=== PATIENT | female | born 1950 | race Caucasian/White ===

== ENCOUNTER 2018-01-08 20:47 | Emergency (ER) | payer MEDICARE, MEDICAID ==
[~2018-01-08] VITALS: Ht 160 cm; Wt 47.6 kg
[2018-01-08 21:14] VITALS: BP 156/99
[2018-01-08] MEDS ORDERED: TRIAMCINOLONE 40MG/ML 1ML VIAL IM ONE (22:00)
[2018-01-08] MEDS ORDERED: HYDROcodone-ACET 5/325MG TAB PO ONE (22:00)
== END 2018-01-08 23:13 | disposition home or self-care (01) ==
LOC: ER 20:47
DX: S30.0XXA Contusion of lower back and pelvis, initial encounter (principal); M62.830 Muscle spasm of back; M19.90 Unspecified osteoarthritis, unspecified site; X50.0XXA Overexertion from strenuous movement or load, initial encounter; Y93.89 Activity, other specified; Y92.89 Other specified places as the place of occurrence of the external cause; Y99.8 Other external cause status
CPT/HCPCS: 72220; 73110; 96372; 99283; J3301

== ENCOUNTER 2019-12-21 16:17 | Inpatient (IN) | payer MEDICARE, MEDICAID ==
[~2019-12-21] VITALS: Ht 162.6 cm; Wt 44.7 kg
[~2019-12-21 16:17] MED LIST: HYDR25TA4 PO; PERCOT PO
[2019-12-21] MEDS ORDERED: SODIUM CHLORIDE 0.9% 500 ML IVB ONE (16:45)
[2019-12-21 17:49] LABS: Basophils # (auto) 0.1 10 ^3/uL (0-0.2); Basophils % (auto) 1.2 % (0.0-2.0); Eosinophils # (auto) 0 10 ^3/uL (0-0.8); Eosinophils % (auto) 0.1 % (0.0-7.0); Hematocrit 40.5 % (36.0-46.0); Hemoglobin 13.7 g/dL (12.2-16.2); Lymphocytes # (auto) 1.1 10 ^3/uL (0.4-5.4); Lymphocytes % (auto) 12.8 % (10.0-50.0); Mean Corpuscular Hemoglobin 32.2 pg (28.0-32.0); Mean Corpuscular Volume 94.9 fL (80.0-100.0); Monocytes # (auto) 0.5 10 ^3/uL (0-1.3); Monocytes % (auto) 5.6 % (0.0-12.0); Neutrophils # (auto) 6.9 10 ^3/uL (1.6-8.6); Neutrophils % (auto) 80.3 % (37.0-80.0); Platelet Count (auto) 245 10^3/uL (140-450); Red Blood Cells 4.27 10^6/uL (4.0-5.20); Red Cell Distribution Width 14.2 % (11.8-14.3); White Blood Cell 8.6 10^3/uL (4.4-10.8)
[2019-12-21 18:12] LABS: Albumin 3.6 g/dL (3.4-5.0); Calcium 9.3 mg/dL (8.5-10.1); Magnesium 2.5 mg/dL (1.6-2.6); Potassium 3.5 mmol/L (3.5-5.1)
[2019-12-21 18:15] LABS: BUN/Creatinine Ratio 22.7; Total Protein 6.9 g/dL (6.4-8.2)
[2019-12-21 18:41] LABS: Urine Bacteria NONE SEEN /hpf (None Seen); Urine Blood Negative /uL (Negative); Urine Specific Gravity 1.012 (1.001-1.035); Urine WBC 3 /hpf (0 - 5)
[2019-12-21] MEDS ORDERED: MORPHINE SULF INJ 2 MG/ML SYRINGE 1ML IV ONE (18:45)
[2019-12-21] MEDS ORDERED: ONDANSETRON HCL 4 MG/2 ML VIAL IV ONE ×2 (18:45→20:00)
[2019-12-21] MEDS ORDERED: NITROGLYCERIN 0.4 MG SL TAB SL PRN ×2 (19:30→19:45)
[2019-12-21] MEDS ORDERED: MORPHINE SULF INJ 2 MG/ML SYRINGE 1ML IV PRN (19:45)
[2019-12-21] MEDS ORDERED: ACETAMINOPHEN 325 MG TAB PO PRN (19:45)
[2019-12-21] MEDS ORDERED: DOCUSATE SOD 100 MG CAP PO PRN (19:45)
[2019-12-21] MEDS ORDERED: methylPREDNISolone SOD SUCC 125 MG/2 ML VL IV ONE (19:45)
[2019-12-21] MEDS ORDERED: SODIUM CHLORIDE 0.9% 1,000 ML IV ONE (19:45)
[2019-12-21] MEDS ORDERED: NIFEdipine ER 30 MG TAB PO ONE (19:45)
[2019-12-21] MEDS ORDERED: MEROPENEM 1GM IVPB 100 ML IV ONE (19:45)
[2019-12-21] MEDS ORDERED: PANTOPRAZOLE 40 MG/10 ML VIAL INJ IV ONE (19:45)
[2019-12-21] MEDS ORDERED: ALUM & MAG HYDROX-SIMETH LIQ(MAALOX) 30 ML PO PRN (19:45)
[2019-12-21] MEDS ORDERED: IPRATROPIUM BROM 0.5 MG/2.5ML INH SOL NEB ONE (20:00)
[2019-12-21] MEDS ORDERED: HYDROmorphone HCL 2 MG/ML VL IV ONE (20:00)
[2019-12-21] MEDS: ATORVASTATIN 20 MG TAB PO SCH (20:37)
[2019-12-21] MEDS: IPRATROPIUM BROM 0.5 MG/2.5ML INH SOL NEB SCH (21:06)
[2019-12-21 21:18] LABS: Cholesterol 109 mg/dL (< 200); HDL Cholesterol 67 mg/dL (40-59); LDL Cholesterol 32 mg/dL (< 100); Triglycerides 100 mg/dL (< 150)
[2019-12-21] MEDS ORDERED: ALBUTEROL SULF 2.5 MG/0.5ML(0.5%) NEB SOLN NEB PRN (21:30)
--- NOTE | 2019-12-21 21:50 | NUR ---
ADMITTED PATIENT FROM THE ER, AAOX4. NO DISTRESS NOTED. AFEBRILE. NO SOB NOTED. MILD BLE WEAKNESS NOTED. ORIENTATION GIVEN. ROUTINE ADMISSION DONE. POCS DISCUSSED WITH PATIENT AND SHOWED UNDERSTANDING. BED KEPT ON LOWEST POSITION. SIDE RAILS UP. CALL LIGHT/TABLE IN REACH. KEPT COMFORTABLE.
[2019-12-21 22:00] VITALS: BP 148/81
[2019-12-21] MEDS ORDERED: IPRATROPIUM BROM 0.5 MG/2.5ML INH SOL NEB PRN (22:00)
[2019-12-21] MEDS ORDERED: PRED-158 PO (22:09)
[2019-12-21] MEDS ORDERED: ASPI-543 PO (22:09)
[2019-12-21 22:19] VITALS: BP 132/65
[2019-12-21] MEDS: HYDROcodone-ACET 5/325MG TAB PO PRN (22:58)
[2019-12-21] MEDS: LORazepam 0.5 MG TAB PO PRN ×2 (22:58→22:59)
[2019-12-21 23:40] VITALS: BP 132/65
[2019-12-22] MEDS: MORPHINE SULF INJ 2 MG/ML SYRINGE 1ML IV PRN ×3 (03:06→21:47)
[2019-12-22 05:00] VITALS: BP 110/70
[2019-12-22] MEDS ORDERED: methylPREDNISolone SOD SUCC 40 MG/ML VL IV SCH (06:00)
--- NOTE | 2019-12-22 07:35 | NUR ---
Opening note Assumed care of patient from NOC RN. Patient is Aox4 on room air, patient noted to be dry heaving and vomiting yellow emesis. Bed is in lowest locked position, call light within reach and side rails up x2. Updated patient on plan of care and patient verbalized understanding. Will continue to monitor. Will notify MD of N/V
[2019-12-22 09:00] VITALS: BP 139/77
[2019-12-22] MEDS: ONDANSETRON HCL 4 MG/2 ML VIAL IV PRN ×2 (09:12→15:09)
[2019-12-22] MEDS: PANTOPRAZOLE 40 MG/10 ML VIAL INJ IV SCH (09:13)
[2019-12-22] MEDS: ENOXAPARIN SOD 40 MG/0.4 ML SYRINGE SC SCH (09:14)
[2019-12-22] MEDS: HYDROcodone-ACET 5/325MG TAB PO PRN ×2 (09:15→15:09)
[2019-12-22] MEDS: ASPirin 81 mg TAB PO SCH (09:15)
--- NOTE | 2019-12-22 09:30 | NUR ---
patient vomited multiple times, emesis noted to be yellow in color. Will provide patient with PRN nausea medication.
[2019-12-22] MEDS ORDERED: MEROPENEM 1GM IVPB 100 ML IV SCH (10:00)
--- NOTE | 2019-12-22 10:30 | NUR ---
physician rounding Dr. Epperson at bedside. MD updated patient on plan of care. One time order for pain medication, and q6 order for Phenergan. Will follow through.
[2019-12-22] MEDS ORDERED: HYDROmorphone HCL 2 MG/ML VL IV ONE (10:45)
[2019-12-22] MEDS: PROMETHAZINE HCL 25 MG/ML 1ML IV PRN ×2 (11:26→18:00)
[2019-12-22 13:00] VITALS: BP 149/79
--- NOTE | 2019-12-22 13:50 | NUR ---
Spoke with deburring technician Per Tech patient was taken to CT and patient was stating "I do not want to do the CT." Per tech patient was asked if she wanted to complete the test and that she has the right to refuse, the patient stated "Never mind. I do want to do it." Per tech, when IV line was flushed with saline patient screamed "It hurts stop, I do not want to do it!" Patient was brought to bedside. Iv line was assessed and patient stated no pain. Asked patient if she would continue with the CT scan and patient stated refusal.
[2019-12-22] MEDS ORDERED: IOHEXOL 300 MG/ML 100ML BOTTLE IJ ONE (13:54)
--- NOTE | 2019-12-22 14:18 | NUR ---
Patient refusal Informed patient that NG tube must be placed. Explained to patient the procedure and patient stated " I do not want it, i just want pain medication and for my vomiting to stop." Educated patient that NG tube can help reduce nausea and vomiting. Patient still verbalizing refusal. Patient actively vomiting, provided patient with nausea and pain medication. Will notify MD.
--- NOTE | 2019-12-22 14:20 | NUR ---
MD aware of refusal MD aware of patient refusing NG tube placement and CT scan. Addendum: 12/22/19 at 1701 by AURORA FRIEDMAN RN informed MD patient is requesting pain medication for higher level pain. Informed MD patient is visibly uncomfortable. Per MD no new orders for pain medication are needed at this time. Per MD keep patient on current PRN medications.
--- NOTE | 2019-12-22 14:50 | NUR ---
received call from Radiology dialysis equipment technician requesting information if patient is ready and consenting to CT scan. Informed them that patient is still verbalizing refusal for scan. CT will be D/C'd due to refusal. Informed tech that MD is aware of refusal.
[2019-12-22 17:00] VITALS: BP 141/65
[2019-12-22] MEDS: SODIUM CHLORIDE 0.9% 1,000 ML IV SCH (18:07)
[2019-12-22 18:44] LABS: Urine Bacteria NONE SEEN /hpf (None Seen); Urine Blood TRACE /uL (Negative); Urine Mucus FEW (None Seen); Urine Specific Gravity 1.016 (1.001-1.035); Urine WBC 1 /hpf (0 - 5)
[2019-12-22 19:01] LABS: Alcohol, Urine < 3.0 mg/dL (0-10); Amphetamine Screen, Urine NEGATIVE (NEGATIVE); Barbiturate Scree,Urine NEGATIVE (NEGATIVE); Benzodiazephine Screen, Urine NEGATIVE (NEGATIVE); Cannabinoid Screen, Urine NEGATIVE (NEGATIVE); Cocaine Screen, Urine NEGATIVE (NEGATIVE); Opiate Scree,Urine POSITIVE (NEGATIVE); Phencyclidine Screen, Urine NEGATIVE (NEGATIVE)
--- NOTE | 2019-12-22 19:20 | NUR ---
Opening Shift Note Received report from david Tan RN. Assumed care of patient, awake and alert. No S/S of distress/SOB, but c/o pain to lower back pain. Will give pain medication as ordered. Instructed on POC and to call for assist PRN, will continue to monitor for changes Q1hr and PRN. Bed placed in lowest position, bed alarm turned on and call light within reach.
--- NOTE | 2019-12-22 19:20 | NUR ---
END OF SHIFT NOTE CARE ENDORSED TO NOC RN. NO S/S OF DISTRESS NOTED.
--- NOTE | 2019-12-22 19:28 | NUR ---
Respiratory note: ASSESSMENT FOR PRN MED NEB TX. PT IN NO RESPIRATORY DISTRESS. HR 69, SPO2 99% ON ROOM AIR, RR 20, DIMINISHED/CLEAR BS. MED NEB TX NOT INDICATED AT THIS TIME. PT MADE AWARE TO HAVE RT PAGED IF NEEDED. WILL CONTINUE TO MONITOR.
[2019-12-22] MEDS: NIFEdipine ER 30 MG TAB PO SCH (21:48)
[2019-12-22] MEDS: methylPREDNISolone SOD SUCC 40 MG/ML VL IV SCH (21:48)
[2019-12-22] MEDS: ATORVASTATIN 20 MG TAB PO SCH (21:49)
[2019-12-22 21:55] VITALS: BP 158/85
--- NOTE | 2019-12-22 22:47 | NUR ---
US STAFF IN ROOM
[2019-12-22] MEDS: LORazepam 0.5 MG TAB PO PRN (22:56)
--- NOTE | 2019-12-22 22:57 | NUR ---
GIVEN ATIVAN FOR ANXIETY, WILL MONITOR
--- NOTE | 2019-12-22 23:01 | NUR ---
PATIENT REFUSED NG TUBE PLACEMENT, WILL TRY AGAIN LATER.
[2019-12-23] MEDS: MORPHINE SULF INJ 2 MG/ML SYRINGE 1ML IV PRN ×3 (02:23→08:06)
[2019-12-23] MEDS: PROMETHAZINE HCL 25 MG/ML 1ML IV PRN ×3 (02:23→12:48)
--- NOTE | 2019-12-23 03:47 | NUR ---
Given pain medication as ordered for pain of 10/10. Will monitor.
--- NOTE | 2019-12-23 04:54 | NUR ---
Patient is resting in bed with eyes closed but seemed restless and keeps moving and repositioning legs. When asked if she's ok patient responds by saying "Yes". Will monitor
[2019-12-23 05:00] VITALS: BP 142/77
[2019-12-23] MEDS: SODIUM CHLORIDE 0.9% 1,000 ML IV SCH ×2 (05:22→16:51)
--- NOTE | 2019-12-23 06:00 | NUR ---
Patient is restless trying to get out and into bed. Advise patient to stay in bed and assisted patient in bed and covered up 5 times this morning. Will monitor
[2019-12-23 07:16] LABS: BUN/Creatinine Ratio 29.2; Calcium 9.2 mg/dL (8.5-10.1); Magnesium 2.4 mg/dL (1.6-2.6); Potassium 3.2 mmol/L (3.5-5.1)
--- NOTE | 2019-12-23 08:00 | NUR ---
OPENING SHIFT NOTE: PATIENT RESTING IN BED, A/OX3 UNAWARE OF DATE/TIME. PATIENT RE-ORIENTED HOWEVER PATIENT STATES SHE "WANTED TO LOOK FOR THE CLINICAL ASSOC." PATIENT INAPPROPRIATE/SLEEPY. RESPIRATIONS EVEN AND UNLABORED ON ROOM AIR, PATIENT BED ALARM ON AND IN PLACE, CALL LIGHT WITHIN REACH. WILL CONTINUE TO MONITOR.
[2019-12-23] MEDS: methylPREDNISolone SOD SUCC 40 MG/ML VL IV SCH ×2 (08:05→21:41)
[2019-12-23] MEDS: PANTOPRAZOLE 40 MG/10 ML VIAL INJ IV SCH (08:05)
[2019-12-23] MEDS: ENOXAPARIN SOD 40 MG/0.4 ML SYRINGE SC SCH (08:06)
[2019-12-23] MEDS: ASPirin 81 mg TAB PO SCH (08:06)
[2019-12-23 09:00] VITALS: BP 136/71
[2019-12-23] MEDS ORDERED: LORazepam 2MG/ML-1ML VIAL IV ONE (11:45)
[2019-12-23] MEDS ORDERED: POTASSIUM CHL 20 Meq TABLET PO ONE (11:45)
[2019-12-23 12:34] VITALS: BP 142/74
--- NOTE | 2019-12-23 13:36 | NUR ---
Respiratory note: PT ASSESSED FOR PRN MEDNEB. PT FOUND ON ROOM AIR. SP02 96%, HR 86, RR 20. PT IN NO DISTRESS AT THIS TIME. NO INDICATION FOR TX. PT AWARE TO HAVE RT PAGED IF SOB.
--- NOTE | 2019-12-23 14:00 | NUR ---
PATIENT BEHAVIOR: THIS RN CAME BACK FROM LUNCH, COVERING RN REPORTS THE PATIENT WAS WALKING DOWN THE RIBERA APPEARED CONFUSED. PATIENT EYES CLOSING RISK FOR FALLS, PLACED BACK IN BED, AND BED ALARM ON. WILL CONTINUE TO MONITOR.
--- NOTE | 2019-12-23 14:49 | NUR ---
CALLED DOWN TO MRI TO LET THEM KNOW MD MONROY IS ORDERING A CT ABDOMEN WITH CONTRAST, CANCELLED YESTERDAY DUE TO PATIENT NON-COMPLIANCE. PATIENT CURRENTLY IN MRI AND NOT COOPERATING DESPITE PRN ATIVAN. PATIENT A/OX1-[address]
--- NOTE | 2019-12-23 15:22 | NUR ---
PATIENT MRI STUDY LIMITED DUE TO PATIENT MOVEMENT AND NON-COMPLIANCE WITH INSTRUCTIONS.
[2019-12-23] MEDS ORDERED: IOHEXOL 350 MG/ML 100ML IJ ONE (15:28)
[2019-12-23 16:35] VITALS: BP 153/84
--- NOTE | 2019-12-23 16:45 | NUR ---
CT ANGIO CONSENT: THIS RN ATTEMPTED TO CONTACT DAUGHTER ON FILE FOR TELEPHONE CONSENT FOR CT ANGIO, UNABLE TO REACH PATIENT CONTACT. PATIENT UNABLE TO VERBALIZE ANOTHER CONTACT, A/OX2. UNABLE TO OBTAIN CONSENT AT THIS TIME.
--- NOTE | 2019-12-23 19:30 | NUR ---
Opening Shift Note Assumed care of patient, asleep, difficult to arouse. No S/S of distress/SOB or pain. Insructed on POC and to callfor assist PRN, will continue to monitor for changes Q1hr and PRN. MD Fong at bedside, attempted to speak with patient, but patient asleep. Observed even rise and fall of chest, no labored breathing noted, no distress noted. MD Fong stated will return tomorrow 12/23 to attempt to speak with patient again. Fall and safety precautions in place. Call light within reach.
[2019-12-23] MEDS: ATORVASTATIN 20 MG TAB PO SCH ×2 (21:40→21:53)
[2019-12-23] MEDS: NIFEdipine ER 30 MG TAB PO SCH ×2 (21:42→21:53)
--- NOTE | 2019-12-23 21:55 | NUR ---
2200 MEDICATIONS Scheduled medications for 2200 not administered (see emar). Patient asleep and difficult to arouse. Patient was observed, noted even rise and fall of chest, unlabored breathing, no distress noted.
[2019-12-23] MEDS: HYDROcodone-ACET 5/325MG TAB PO PRN (22:39)
[2019-12-23 23:18] VITALS: BP 159/99
[2019-12-24] VITALS (7 sets, daily range): BP systolic 137–162; BP diastolic 76–93
[2019-12-24] MEDS: HYDROcodone-ACET 5/325MG TAB PO PRN ×2 (03:33→08:45)
[2019-12-24] MEDS: hydrALAZINE HCL 25 MG TAB PO PRN ×2 (05:10→16:00)
[2019-12-24 06:31] LABS: Basophils # (auto) 0 10 ^3/uL (0-0.2); Basophils % (auto) 0.1 % (0.0-2.0); Eosinophils # (auto) 0 10 ^3/uL (0-0.8); Hematocrit 44.9 % (36.0-46.0); Hemoglobin 15.4 g/dL (12.2-16.2); Lymphocytes % (auto) 8.5 % (10.0-50.0); Mean Corpuscular Hemoglobin 31.8 pg (28.0-32.0); Mean Corpuscular Hgb Conc. 34.2 g/dL (32.0-36.0); Mean Corpuscular Volume 93.1 fL (80.0-100.0); Monocytes # (auto) 0.7 10 ^3/uL (0-1.3); Monocytes % (auto) 6.4 % (0.0-12.0); Neutrophils # (auto) 9.8 10 ^3/uL (1.6-8.6); Nucleated Red Blood Cells % 0.1 %; Platelet Count (auto) 293 10^3/uL (140-450); Red Blood Cells 4.82 10^6/uL (4.0-5.20); Red Cell Distribution Width 14.1 % (11.8-14.3); White Blood Cell 11.6 10^3/uL (4.4-10.8)
[2019-12-24 06:45] LABS: Potassium 3.4 mmol/L (3.5-5.1)
[2019-12-24 07:11] LABS: BUN/Creatinine Ratio 40.3; Calcium 9.2 mg/dL (8.5-10.1)
--- NOTE | 2019-12-24 07:33 | NUR ---
OPENING SHIFT NOTE: PATIENT RESTING IN BED ASLEEP, MUMBLING IN RESPONSE TO QUESTIONS A/OX1 UNAWARE OF DATE/TIME/SITUATION. PATIENT RE-ORIENTED, UNABLE TO VERBALIZE UNDERSTANDING. RESPIRATIONS EVEN AND UNLABORED ON ROOM AIR, PATIENT BED ALARM ON AND IN PLACE, CALL LIGHT WITHIN REACH. WILL CONTINUE TO MONITOR.
[2019-12-24] MEDS: ENOXAPARIN SOD 40 MG/0.4 ML SYRINGE SC SCH (08:45)
[2019-12-24] MEDS: methylPREDNISolone SOD SUCC 40 MG/ML VL IV SCH ×2 (08:45→20:54)
[2019-12-24] MEDS: ASPirin 81 mg TAB PO SCH (08:45)
[2019-12-24] MEDS: PANTOPRAZOLE 40 MG/10 ML VIAL INJ IV SCH (08:46)
--- NOTE | 2019-12-24 09:04 | NUR ---
ORIENTATION: PATIENT A/OX4. UNABLE TO RECALL YESTERDAY'S EVENTS STATES, "I FELT SO TIRED AND I WAS IN PAIN THIS MORNING." AFTER MD MONROY ROUNDED, ORDERS REPEATED FOR CHEST CTA AND LOWER BACK MRI, PATIENT MUCH MORE COMPLIANT AND ABLE TO VERBALIZE UNDERSTANDING. CONSENT SIGNED FOR CTA.
[2019-12-24] MEDS ORDERED: IOHEXOL 350 MG/ML 100ML IJ ONE (09:43)
--- NOTE | 2019-12-24 09:54 | NUR ---
PATIENT TAKEN DOWN TO CT.
[2019-12-24] MEDS ORDERED: POTASSIUM CHL 20 Meq TABLET PO ONE (10:45)
--- NOTE | 2019-12-24 12:20 | NUR ---
Respiratory note: PT ASSESSED FOR PRN MED NEB. PT FOUND ON ROOM AIRSP02 97%, HR 102, RR 20. PT DIMINISHED. NO S/S OF RESPIRATORY DISTRESS. NO INDICATION FOR TREATMENT AT THIS TIME. PT AWARE TO HAVE RT PAGED IF SOB. WILL CONTINUE TO MONITOR.
[2019-12-24] MEDS: MORPHINE SULF INJ 2 MG/ML SYRINGE 1ML IV PRN ×3 (12:24→20:55)
[2019-12-24] MEDS: SODIUM CHLORIDE 0.9% 1,000 ML IV SCH (12:24)
--- NOTE | 2019-12-24 12:40 | NUR ---
assessment Patient is a 69 year old female who is alert and oriented. Prior to admission patient lived home with her and was independent. Patient will return home on discharge. Patient informed me she has no need for DME. Patients PCP is Dr Vasquez in [place]. I informed patient she has a consult for [facility] for safety, PT, medication management and vitals. Patient has been provided with a list of medicare providers. Patient has no preference on who provides service. MD order has been sent to [facility]. Per Aaron at [facility] service will start within 48 hours of discharge. I informed patient she has a right to speak to a secondary social studies teacher regarding all care. I informed patient she has a right to participate in any and all discharge planning. Patient does not have a POA and advanced directive. I have offered patient information on POA and advanced directives. I informed the patient the advantages and benefits of having an Advanced Directive. Patient verbalized understanding and agreed to discharge plan. Addendum: 12/24/19 at 1252 by Dilcia HAIR Amended: Links added.
--- NOTE | 2019-12-24 14:10 | NUR ---
PATIENT TAKEN TO MRI.
--- NOTE | 2019-12-24 16:06 | NUR ---
PAIN: PATIENT GIVEN HOT PACK AND NORCO FOR PAIN IN THE LOWER BACK. WILL CONTINUE TO MONITOR AND ADMINISTER MEDICATIONS PER PAIN SCALE.
--- NOTE | 2019-12-24 16:32 | NUR ---
Patient declined P.T. x 2. Attempt P.T. tomorrow.
--- NOTE | 2019-12-24 19:10 | NUR ---
CARE ENDORSED TO NOC RN.
--- NOTE | 2019-12-24 19:20 | NUR ---
Respiratory note: ASSESSED PT FOR PRN MED NEB AT THIS TIME, PT DENIES SOB AT THIS TIME, NO RESP DISTRESS NOTED, NO TX INDICATED. PULSE OX 96% ON RA, HR 92, RR 22, BILATERAL BS CLEAR
--- NOTE | 2019-12-24 19:30 | NUR ---
Opening Shift Note Assumed care of patient, awake and alert. No S/S of distress/SOB or pain. Insructed on POC and to callfor assist PRN, will continue to monitor for changes Q1hr and PRN. Fall and safety precautions in place. Call light within reach.
[2019-12-24] MEDS: ATORVASTATIN 20 MG TAB PO SCH (20:55)
[2019-12-24] MEDS: NIFEdipine ER 30 MG TAB PO SCH (21:55)
[2019-12-25] MEDS: MORPHINE SULF INJ 2 MG/ML SYRINGE 1ML IV PRN ×6 (01:10→20:30)
--- NOTE | 2019-12-25 01:30 | NUR ---
IV insertion IV access obtained, via clean sterile technique by inserting 20 gauge catheter at LFA after 2 attempts. IV secured properly. No trauma to site. Patient tolerated well. IV removal IV DC'd with clean sterile technique, catheter fully intact. Pressure dressing applied to site. Patient tolerated well. NOTE: LFA 20g removed due to infiltration
[2019-12-25] MEDS: SODIUM CHLORIDE 0.9% 1,000 ML IV SCH (06:11)
[2019-12-25 06:29] LABS: Basophils # (auto) 0.1 10 ^3/uL (0-0.2); Basophils % (auto) 0.8 % (0.0-2.0); Eosinophils # (auto) 0 10 ^3/uL (0-0.8); Hematocrit 44.3 % (36.0-46.0); Hemoglobin 14.9 g/dL (12.2-16.2); Lymphocytes # (auto) 0.9 10 ^3/uL (0.4-5.4); Lymphocytes % (auto) 5.7 % (10.0-50.0); Mean Corpuscular Hemoglobin 31.9 pg (28.0-32.0); Mean Corpuscular Hgb Conc. 33.7 g/dL (32.0-36.0); Mean Corpuscular Volume 94.6 fL (80.0-100.0); Monocytes # (auto) 0.8 10 ^3/uL (0-1.3); Monocytes % (auto) 5.1 % (0.0-12.0); Neutrophils # (auto) 13.3 10 ^3/uL (1.6-8.6); Neutrophils % (auto) 88.4 % (37.0-80.0); Nucleated Red Blood Cells % 0.2 %; Platelet Count (auto) 274 10^3/uL (140-450); Red Blood Cells 4.69 10^6/uL (4.0-5.20); Red Cell Distribution Width 14.4 % (11.8-14.3); White Blood Cell 15.1 10^3/uL (4.4-10.8)
--- NOTE | 2019-12-25 06:30 | NUR ---
PT. ASSESSED FOR PRN. MED NEB., NO RESP. DISTRESS OR SOB NOTED. BS. ARE CLEAR AND DECREASED, HR= 92, RR= 18, SP02=97% ON RA. PRN. TX. NOT INDICATED OR GIVEN AT THIS TIME. PT. INSTRUCTED TO CALL IF NEEDED.
[2019-12-25 06:55] LABS: Potassium 3.8 mmol/L (3.5-5.1)
[2019-12-25 07:00] LABS: BUN/Creatinine Ratio 53.7; Calcium 9.1 mg/dL (8.5-10.1)
[2019-12-25 09:00] VITALS: BP 132/80
[2019-12-25] MEDS: PANTOPRAZOLE 40 MG/10 ML VIAL INJ IV SCH (09:16)
[2019-12-25] MEDS: ASPirin 81 mg TAB PO SCH (09:17)
[2019-12-25] MEDS: methylPREDNISolone SOD SUCC 40 MG/ML VL IV SCH ×2 (09:17→21:38)
[2019-12-25] MEDS: ENOXAPARIN SOD 40 MG/0.4 ML SYRINGE SC SCH (09:17)
[2019-12-25 13:00] VITALS: BP 130/78
--- NOTE | 2019-12-25 14:05 | NUR ---
Nutrition Assessment Notes Please refer to link for full assessment notes. Est Energy needs: [id number] kcals (20-23 kcal/kgIBW 54.5 kg) Est Protein needs: 55-60 gms/day (1.0-1.1 gm/kgIBW 54.5 kg) Will continue to monitor and reassess prn. Addendum: 12/25/19 at [address] Amended: Links added.
[2019-12-25] MEDS: HYDROcodone-ACET 5/325MG TAB PO PRN ×2 (14:12→17:55)
[2019-12-25 17:00] VITALS: BP 147/85
[2019-12-25] MEDS: ATORVASTATIN 20 MG TAB PO SCH (21:38)
[2019-12-25] MEDS: NIFEdipine ER 30 MG TAB PO SCH (21:40)
[2019-12-25 21:56] VITALS: BP 150/89
[2019-12-26] MEDS: MORPHINE SULF INJ 2 MG/ML SYRINGE 1ML IV PRN ×7 (00:24→23:34)
[2019-12-26] MEDS: SODIUM CHLORIDE 0.9% 1,000 ML IV SCH ×2 (03:00→23:00)
[2019-12-26 05:21] VITALS: BP 144/84
--- NOTE | 2019-12-26 07:25 | NUR ---
Report given to Afshin Rhodes, patient is resting no distress.
--- NOTE | 2019-12-26 07:30 | NUR ---
Respiratory note:PT ASSESSED FOR PRN MED NEB. PT DENIES ANY SOB. SP02 97% ON RA, HR 96, RR 20. PT DIMINISHED. NO S/S OF RESPIRATORY DISTRESS. NO INDICATION FOR TREATMENT AT THIS TIME. PT AWARE TO HAVE RT PAGED IF NEEDED.
[2019-12-26] MEDS: PANTOPRAZOLE 40 MG/10 ML VIAL INJ IV SCH (08:48)
[2019-12-26] MEDS: ENOXAPARIN SOD 40 MG/0.4 ML SYRINGE SC SCH (08:49)
[2019-12-26] MEDS: methylPREDNISolone SOD SUCC 40 MG/ML VL IV SCH ×2 (08:49→21:27)
[2019-12-26] MEDS: ASPirin 81 mg TAB PO SCH (08:49)
[2019-12-26 09:00] VITALS: BP 144/81
[2019-12-26 13:00] VITALS: BP 115/71
[2019-12-26] MEDS: HYDROcodone-ACET 5/325MG TAB PO PRN (14:23)
[2019-12-26 17:38] VITALS: BP 136/82
--- NOTE | 2019-12-26 19:47 | NUR ---
Opening Shift Note Assumed care of patient, awake and alert. No S/S of distress/SOB c/o stevo pain 08/19. Instructed on POC and to call for assist PRN, will continue to monitor for changes Q1hr and PRN.Medicated with Morphine 2mg.i.v.p.as needed.
[2019-12-26] MEDS: NIFEdipine ER 30 MG TAB PO SCH (21:26)
[2019-12-26] MEDS: ATORVASTATIN 20 MG TAB PO SCH (21:27)
[2019-12-26 22:00] VITALS: BP 107/68
[2019-12-27] MEDS: MORPHINE SULF INJ 2 MG/ML SYRINGE 1ML IV PRN ×2 (04:21→09:08)
[2019-12-27 05:00] VITALS: BP 137/71
--- NOTE | 2019-12-27 07:30 | NUR ---
Opening Shift Note Assumed care of patient, awake and alert. No S/S of distress/SOB. Patient is c/o lower back pain 10/20, will follow medication orders.. Instructed on POC and to call for assist PRN, will continue to monitor for changes Q1hr and PRN. Bed is locked and in lowest position. Call light within reach.
--- NOTE | 2019-12-27 07:36 | NUR ---
Report given to Afshin Tran, patient is resting no distress.
[2019-12-27 08:50] VITALS: BP 123/73
[2019-12-27] MEDS: methylPREDNISolone SOD SUCC 40 MG/ML VL IV SCH (09:12)
[2019-12-27] MEDS: ASPirin 81 mg TAB PO SCH (09:13)
[2019-12-27] MEDS: ENOXAPARIN SOD 40 MG/0.4 ML SYRINGE SC SCH (09:13)
[2019-12-27] MEDS: PANTOPRAZOLE 40 MG/10 ML VIAL INJ IV SCH (09:13)
[2019-12-27 10:33] LABS: Basophils # (auto) 0 10 ^3/uL (0-0.2); Basophils % (auto) 0.2 % (0.0-2.0); Eosinophils # (auto) 0 10 ^3/uL (0-0.8); Hemoglobin 15.3 g/dL (12.2-16.2); Lymphocytes # (auto) 1.4 10 ^3/uL (0.4-5.4); Lymphocytes % (auto) 13.2 % (10.0-50.0); Mean Corpuscular Hemoglobin 31.9 pg (28.0-32.0); Mean Corpuscular Volume 93.8 fL (80.0-100.0); Monocytes # (auto) 0.6 10 ^3/uL (0-1.3); Monocytes % (auto) 5.8 % (0.0-12.0); Neutrophils # (auto) 8.6 10 ^3/uL (1.6-8.6); Neutrophils % (auto) 80.8 % (37.0-80.0); Nucleated Red Blood Cells % 0.2 %; Platelet Count (auto) 254 10^3/uL (140-450); Red Blood Cells 4.79 10^6/uL (4.0-5.20); Red Cell Distribution Width 14.2 % (11.8-14.3); White Blood Cell 10.7 10^3/uL (4.4-10.8)
[2019-12-27 13:00] VITALS: BP 117/78
[2019-12-27] MEDS ORDERED: NIFE1TAB31 PO (14:02)
[2019-12-27] MEDS ORDERED: PANT40TA2 PO (14:02)
[2019-12-27 14:30] VITALS: BP 117/78
--- NOTE | 2019-12-27 15:06 | NUR ---
DISCHARGE PATIENT GIVEN DISCHARGE PAPERWORK, ALL QUESTIONS AND CONCERNS ANSWERED. PATIENT WILL HAVE HOME HEALTH OFFERED BY [facility] ONCE PATIENT IS DISCHARGED. PATIENT MEDICATION PICKED UP ON WAY OUT FROM [facility]. IV REMOVAL IV DC'D WITH CLEAN STERILE TECHNIQUE, CATHETER FULLY INTACT. PRESSURE DRESSING APPLIED TO SITE. PATIENT TOLERATED WELL. PATIENT WHEELED OUT VIA WHEELCHAIR AWAITING DAUGHTER WELDING MACHINE OPERATOR/TENDER.
== END 2019-12-27 15:06 | disposition home health service (06) | DRG 552 ==
LOC: EDBD 16:17 → ER 16:17 → OVERFLOW 19:29 → WEST WING 21:17
PROVIDERS: ADMIT Hospitalist; ATTEND Internal Medicine
DX: M54.5 Low back pain (principal); N10 Acute pyelonephritis; R64 Cachexia; Z68.1 Body mass index [BMI] 19.9 or less, adult; F11.20 Opioid dependence, uncomplicated; M19.90 Unspecified osteoarthritis, unspecified site; M06.9 Rheumatoid arthritis, unspecified; D72.829 Elevated white blood cell count, unspecified; I71.2 Thoracic aortic aneurysm, without rupture; K21.9 Gastro-esophageal reflux disease without esophagitis; K29.70 Gastritis, unspecified, without bleeding; E87.6 Hypokalemia; I10 Essential (primary) hypertension; K82.4 Cholesterolosis of gallbladder; T38.0X5A Adverse effect of glucocorticoids and synthetic analogues, initial encounter; G89.29 Other chronic pain; J44.9 Chronic obstructive pulmonary disease, unspecified; Z90.710 Acquired absence of both cervix and uterus; Z82.49 Family history of ischemic heart disease and other diseases of the circulatory system; Y92.89 Other specified places as the place of occurrence of the external cause; F17.210 Nicotine dependence, cigarettes, uncomplicated; Z87.440 Personal history of urinary (tract) infections; Z87.442 Personal history of urinary calculi
CPT/HCPCS: 36415; 71260; 72148; 74176; 74177; 76705; 80048; 80053; 80061; 80307; 81001; 83036; 83735; 83880; 84443; 84484; 85025; 87040; 87086; 94640; 96361; 96365; 96375; 96376; 97163; 97530; C9113; G0378; J2185; J2405

== ENCOUNTER 2020-08-19 15:31 | Inpatient (IN) | payer MEDICARE, MEDICAID ==
[~2020-08-19] VITALS: Ht 157.5 cm; Wt 47.5 kg
[~2020-08-19 15:31] MED LIST changes: +ASPI-543 PO; -HYDR25TA4 PO; +NIFE1TAB31 PO; +PANT40TA2 PO; +PRED10TA PO
[2020-08-19] MEDS ORDERED: ONDANSETRON HCL 4 MG/2 ML VIAL IV ONE (17:45)
[2020-08-19] MEDS ORDERED: MORPHINE SULFATE INJECTION 2 MG/ML SYRG IV ONE (17:45)
[2020-08-19] MEDS ORDERED: SODIUM CHLORIDE 0.9% 1,000 ML IVB ONE (19:15)
[2020-08-19 19:19] LABS: Basophils # (auto) 0.2 10 ^3/uL (0-0.2); Basophils % (auto) 1.2 % (0.0-2.0); Eosinophils # (auto) 0 10 ^3/uL (0-0.8); Hematocrit 39.8 % (36.0-46.0); Lymphocytes % (auto) 7.6 % (10.0-50.0); Mean Corpuscular Hemoglobin 29.9 pg (28.0-32.0); Mean Corpuscular Hgb Conc. 35.1 g/dL (32.0-36.0); Monocytes # (auto) 0.4 10 ^3/uL (0-1.3); Monocytes % (auto) 3.3 % (0.0-12.0); Neutrophils # (auto) 11.8 10 ^3/uL (1.6-8.6); Neutrophils % (auto) 87.9 % (37.0-80.0); Nucleated Red Blood Cells % 0.1 %; Red Blood Cells 4.68 10^6/uL (4.0-5.20); Red Cell Distribution Width 15.1 % (11.8-14.3); White Blood Cell 13.5 10^3/uL (4.4-10.8)
[2020-08-19 19:33] LABS: Alanine Aminotransferase 23 U/L (13-56); Anion Gap 9 (5-15); Aspartate Aminotransferase 7 U/L (15-37); BUN/Creatinine Ratio 27.9; Blood Urea Nitrogen 19 mg/dL (7-18); Calcium 9.2 mg/dL (8.5-10.1); Carbon Dioxide 24 mmol/L (21-32); Chloride 103 mmol/L (98-107); GFR African American 110 mL/min; GFR Non-African American 91 mL/min; Glucose 119 mg/dL (74-106); Magnesium 2.1 mg/dL (1.6-2.6); Potassium 3.4 mmol/L (3.5-5.1); Sodium 136 mmol/L (136-145)
[2020-08-19 19:38] LABS: Alkaline Phosphatase 93 U/L (45-117); Bilirubin, Total 0.7 mg/dL (0.2-1.0); Total Protein 8.1 g/dL (6.4-8.2)
[2020-08-19] MEDS ORDERED: PROMETHAZINE HCL 25 MG/ML 1ML IV ONE (20:45)
[2020-08-19] MEDS ORDERED: HYDROcodone-ACET 5/325MG TAB PO PRN (23:15)
[2020-08-19] MEDS ORDERED: ACETAMINOPHEN 325 MG TAB PO PRN (23:15)
[2020-08-19] MEDS ORDERED: NITROGLYCERIN 0.4 MG SL TAB SL PRN (23:15)
[2020-08-19] MEDS ORDERED: MORPHINE SULFATE INJECTION 2 MG/ML SYRG IV PRN (23:15)
[2020-08-19] MEDS ORDERED: POTASSIUM CHL 20MEQ/100ML 100 ML IV ONE (23:15)
[2020-08-19 23:27] LABS: Urine Bacteria NONE SEEN /hpf (None Seen); Urine Blood 2+ /uL (Negative); Urine Specific Gravity 1.016 (1.001-1.035); Urine WBC 1 /hpf (0 - 5)
[2020-08-19] MEDS: SODIUM CHLORIDE 0.9% 1,000 ML IV SCH (23:40)
[2020-08-20] MEDS: ONDANSETRON HCL 4 MG/2 ML VIAL IV PRN ×5 (00:31→20:08)
[2020-08-20] MEDS: MORPHINE SULFATE 4 MG/ML SYR/VIAL IV PRN ×6 (00:31→23:58)
[2020-08-20 07:26] LABS: Basophils # (auto) 0.1 10 ^3/uL (0-0.2); Eosinophils # (auto) 0 10 ^3/uL (0-0.8); Hematocrit 39.6 % (36.0-46.0); Hemoglobin 14.1 g/dL (12.2-16.2); Lymphocytes # (auto) 1.2 10 ^3/uL (0.4-5.4); Lymphocytes % (auto) 8.5 % (10.0-50.0); Mean Corpuscular Hemoglobin 30.2 pg (28.0-32.0); Mean Corpuscular Hgb Conc. 35.6 g/dL (32.0-36.0); Mean Corpuscular Volume 84.9 fL (80.0-100.0); Monocytes # (auto) 0.6 10 ^3/uL (0-1.3); Monocytes % (auto) 4.3 % (0.0-12.0); Neutrophils # (auto) 11.9 10 ^3/uL (1.6-8.6); Neutrophils % (auto) 86.2 % (37.0-80.0); Red Blood Cells 4.67 10^6/uL (4.0-5.20); White Blood Cell 13.7 10^3/uL (4.4-10.8)
[2020-08-20 07:34] LABS: Calcium 8.9 mg/dL (8.5-10.1); Potassium 3.2 mmol/L (3.5-5.1)
[2020-08-20 07:38] LABS: BUN/Creatinine Ratio 24.6; Bilirubin, Total 1.2 mg/dL (0.2-1.0); Total Protein 7.8 g/dL (6.4-8.2)
[2020-08-20] MEDS ORDERED: FAMOTIDINE (10MG/ML) 2ML VL IV SCH (10:00)
[2020-08-20] MEDS ORDERED: ENOXAPARIN SOD 30 MG/0.3 ML SYRINGE SC SCH (10:00)
[2020-08-20 12:30] LABS: Amylase 48 U/L (25-115); Lipase 208 U/L (73-393)
[2020-08-20] MEDS ORDERED: POTASSIUM CHL 20MEQ/100ML 100 ML IV ONE (12:30)
[2020-08-20] MEDS ORDERED: NIFEdipine ER 30 MG TAB PO ONE (12:30)
[2020-08-20] MEDS ORDERED: cefTRIAXone 1GM/50ML D5W 50 ML IV ONE (12:30)
[2020-08-20] MEDS ORDERED: metroNIDAZOLE 500MG/100ML 100 ML IV SCH (14:00)
[2020-08-20] MEDS: SODIUM CHLORIDE 0.9% 1,000 ML IV SCH (17:08)
[2020-08-20 22:30] VITALS: BP 137/74
[2020-08-20 22:44] VITALS: BP 137/74
[2020-08-21] MEDS ORDERED: metroNIDAZOLE 500MG/100ML 100 ML IV SCH (03:00)
[2020-08-21] MEDS: MORPHINE SULFATE 4 MG/ML SYR/VIAL IV PRN ×2 (03:59→08:43)
[2020-08-21 05:00] VITALS: BP 149/81
[2020-08-21 06:52] LABS: Basophils # (auto) 0.1 10 ^3/uL (0-0.2); Basophils % (auto) 0.4 % (0.0-2.0); Eosinophils # (auto) 0 10 ^3/uL (0-0.8); Hematocrit 42.4 % (36.0-46.0); Hemoglobin 15.1 g/dL (12.2-16.2); Lymphocytes # (auto) 1.5 10 ^3/uL (0.4-5.4); Lymphocytes % (auto) 10.8 % (10.0-50.0); Mean Corpuscular Hemoglobin 30.1 pg (28.0-32.0); Mean Corpuscular Hgb Conc. 35.6 g/dL (32.0-36.0); Mean Corpuscular Volume 84.7 fL (80.0-100.0); Monocytes # (auto) 0.9 10 ^3/uL (0-1.3); Monocytes % (auto) 6.2 % (0.0-12.0); Neutrophils # (auto) 11.5 10 ^3/uL (1.6-8.6); Neutrophils % (auto) 82.6 % (37.0-80.0); Nucleated Red Blood Cells % 0.1 %; White Blood Cell 13.9 10^3/uL (4.4-10.8)
[2020-08-21 07:00] LABS: Albumin 4.1 g/dL (3.4-5.0); Magnesium 2.3 mg/dL (1.6-2.6)
[2020-08-21 07:02] LABS: Cholesterol 114 mg/dL (< 200); HDL Cholesterol 58 mg/dL (40-59); LDL Cholesterol 38 mg/dL (< 100); Triglycerides 100 mg/dL (< 150)
[2020-08-21 07:05] LABS: BUN/Creatinine Ratio 28.8; Bilirubin, Total 1.6 mg/dL (0.2-1.0); Total Protein 8.2 g/dL (6.4-8.2)
[2020-08-21 07:55] LABS: Potassium 2.9 mmol/L (3.5-5.1)
[2020-08-21 09:05] VITALS: BP 149/82
[2020-08-21] MEDS: cefTRIAXone 1GM/50ML D5W 50 ML IV SCH (09:45)
[2020-08-21] MEDS: SODIUM CHLORIDE 0.9% 1,000 ML IV SCH (09:45)
[2020-08-21] MEDS: FAMOTIDINE (10MG/ML) 2ML VL IV SCH (09:46)
[2020-08-21] MEDS: NIFEdipine ER 30 MG TAB PO SCH (09:46)
[2020-08-21] MEDS: ENOXAPARIN SOD 40 MG/0.4 ML SYRINGE SC SCH (09:47)
[2020-08-21] MEDS ORDERED: POTASSIUM CHL 20 Meq TABLET PO ONE (10:15)
[2020-08-21] MEDS ORDERED: POTASSIUM CHLORIDE 20 MEQ, LIDOCAINE 1% (LOCAL ANESTH.) 2 ML in SODIUM CHL 0.9% 100 ML IV ONE (10:15)
[2020-08-21] MEDS: ERGOCALCIFEROL 50,000 UNIT(1.25MG) CAP PO SCH ×2 (11:20→18:30)
[2020-08-21] MEDS ORDERED: OXYCODONE W/ ACETAMINOPHEN 5/325MG TABLET PO ONE (12:15)
[2020-08-21] MEDS: OXYCODONE W/ ACETAMINOPHEN 5/325MG TABLET PO PRN ×2 (12:35→19:29)
[2020-08-21 13:20] VITALS: BP 146/88
[2020-08-21] MEDS: metroNIDAZOLE 500MG/100ML 100 ML IV SCH ×2 (15:30→23:29)
[2020-08-21 17:00] VITALS: BP 122/78
[2020-08-21 22:00] VITALS: BP 105/73
[2020-08-22] MEDS: OXYCODONE W/ ACETAMINOPHEN 5/325MG TABLET PO PRN ×3 (02:42→16:03)
[2020-08-22 05:00] VITALS: BP 109/62
[2020-08-22] MEDS: metroNIDAZOLE 500MG/100ML 100 ML IV SCH ×2 (06:38→14:59)
[2020-08-22 06:58] LABS: BUN/Creatinine Ratio 37.9; Calcium 8.6 mg/dL (8.5-10.1); Magnesium 2.6 mg/dL (1.6-2.6); Potassium 3.8 mmol/L (3.5-5.1)
[2020-08-22] MEDS: SODIUM CHLORIDE 0.9% 1,000 ML IV SCH (07:18)
[2020-08-22 09:00] VITALS: BP 132/76
[2020-08-22] MEDS: ENOXAPARIN SOD 40 MG/0.4 ML SYRINGE SC SCH (09:14)
[2020-08-22] MEDS: FAMOTIDINE (10MG/ML) 2ML VL IV SCH (09:14)
[2020-08-22] MEDS: cefTRIAXone 1GM/50ML D5W 50 ML IV SCH (09:14)
[2020-08-22] MEDS: NIFEdipine ER 30 MG TAB PO SCH (09:15)
[2020-08-22 13:00] VITALS: BP 131/83
[2020-08-22 16:26] VITALS: BP 132/26
== END 2020-08-22 17:10 | disposition home or self-care (01) | DRG 392 ==
LOC: ER 15:31 → EDBD 15:31 → OVERFLOW 23:15 → TELE-EAST 08-20 22:41 → EAST 08-20 22:42
PROVIDERS: ADMIT Nurse Practitioner Family; ATTEND Internal Medicine
DX: K52.9 Noninfective gastroenteritis and colitis, unspecified (principal); N13.30 Unspecified hydronephrosis; R65.10 Systemic inflammatory response syndrome (SIRS) of non-infectious origin without acute organ dysfunction; I10 Essential (primary) hypertension; K80.20 Calculus of gallbladder without cholecystitis without obstruction; E55.9 Vitamin D deficiency, unspecified; F17.210 Nicotine dependence, cigarettes, uncomplicated; J44.9 Chronic obstructive pulmonary disease, unspecified; M06.9 Rheumatoid arthritis, unspecified; Z82.49 Family history of ischemic heart disease and other diseases of the circulatory system; Z83.3 Family history of diabetes mellitus; Z90.710 Acquired absence of both cervix and uterus; M19.90 Unspecified osteoarthritis, unspecified site; Z20.822 Contact with and (suspected) exposure to COVID-19; Z88.8 Allergy status to other drugs, medicaments and biological substances; Z90.49 Acquired absence of other specified parts of digestive tract
CPT/HCPCS: 36415; 71045; 74176; 76705; 80048; 80053; 80061; 81001; 82150; 82306; 83036; 83690; 83735; 84443; 84484; 85025; 85049; 87426; 93005; 96361; 96374; 96375; G0378; J0696; J2001; J2405; J3480; J3490

== ENCOUNTER 2021-05-08 17:25 | Emergency (ER) | payer MEDICARE, MEDICAID ==
[~2021-05-08] VITALS: Ht 170.2 cm; Wt 49.9 kg
[2021-05-08] MEDS ORDERED: fentaNYL CITRATE 100 MCG/2 ML VL IV ONE (18:15)
[2021-05-08 18:42] LABS: Albumin 3.8 g/dL (3.4-5.0); BUN/Creatinine Ratio 19.7; Calcium 9.2 mg/dL (8.5-10.1)
[2021-05-08 18:43] LABS: Basophils # (auto) 0.1 10 ^3/uL (0-0.2); Basophils % (auto) 1.3 % (0.0-2.0); Eosinophils # (auto) 0 10 ^3/uL (0-0.8); Eosinophils % (auto) 0.2 % (0.0-7.0); Hematocrit 39.6 % (36.0-46.0); Hemoglobin 13.8 g/dL (12.2-16.2); Lymphocytes # (auto) 1.3 10 ^3/uL (0.4-5.4); Lymphocytes % (auto) 16.4 % (10.0-50.0); Mean Corpuscular Hgb Conc. 34.9 g/dL (32.0-36.0); Monocytes # (auto) 0.4 10 ^3/uL (0-1.3); Monocytes % (auto) 4.6 % (0.0-12.0); Neutrophils # (auto) 5.9 10 ^3/uL (1.6-8.6); Neutrophils % (auto) 77.5 % (37.0-80.0); Nucleated Red Blood Cells % 0.3 %; Red Blood Cells 4.61 10^6/uL (4.0-5.20); Red Cell Distribution Width 14.4 % (11.8-14.3); White Blood Cell 7.7 10^3/uL (4.4-10.8)
[2021-05-08 18:55] LABS: Potassium 2.9 mmol/L (3.5-5.1)
[2021-05-08] MEDS ORDERED: SODIUM CHLORIDE 0.9% 1,000 ML IVB ONE (19:30)
[2021-05-08] MEDS ORDERED: ONDANSETRON HCL 4 MG/2 ML VIAL IV ONE (19:30)
[2021-05-08] MEDS ORDERED: IOHEXOL 300 MG/ML 100ML BOTTLE IJ ONE (19:39)
[2021-05-08] MEDS ORDERED: POTASSIUM CHLORIDE 40 MEQ in SOD CHL 0.45% 1,000 ML IV SCH (20:45)
[2021-05-08] MEDS ORDERED: KETOROLAC TROMETH 30 MG/ML 1ML VIAL IV ONE (20:45)
[2021-05-08] MEDS: POTASSIUM CHL 20MEQ/100ML 100 ML IV SCH ×2 (21:56→23:45)
[2021-05-08] MEDS ORDERED: LIDOCAINE 5% TOPICAL PATCH TOP ONE (23:15)
[2021-05-09] VITALS: BP 161/74
[2021-05-09] MEDS ORDERED: DOCU-94 PO (00:53)
[2021-05-09] MEDS ORDERED: SENN1TAB14 PO (00:53)
[2021-05-09] MEDS ORDERED: POLYETHYLENE GLYCOL 17 GM PWDR PO ONE (01:00)
[2021-05-09] MEDS: POTASSIUM CHL 20MEQ/100ML 100 ML IV SCH (01:05)
[2021-05-09] MEDS ORDERED: ACETAMINOPHEN 500 MG TAB PO ONE (01:15)
== END 2021-05-09 04:03 | disposition home or self-care (01) ==
LOC: ER 17:25 → EDBD 17:25 → ER 05-09 01:43
DX: K59.00 Constipation, unspecified (principal); J44.9 Chronic obstructive pulmonary disease, unspecified; I10 Essential (primary) hypertension; F17.210 Nicotine dependence, cigarettes, uncomplicated; Z90.710 Acquired absence of both cervix and uterus
CPT/HCPCS: 36415; 74177; 76705; 80053; 83690; 84484; 85025; 93005; J1885; J2405; J3480

== ENCOUNTER 2021-05-09 11:59 | Inpatient (IN) | payer MEDICARE, MEDICAID ==
[~2021-05-09] VITALS: Ht 160 cm; Wt 42.8 kg
[~2021-05-09 11:59] MED LIST changes: +DOCU-94 PO; +SENN1TAB14 PO
[2021-05-09 13:30] LABS: Basophils # (auto) 0.1 10 ^3/uL (0-0.2); Basophils % (auto) 0.8 % (0.0-2.0); Eosinophils # (auto) 0 10 ^3/uL (0-0.8); Hematocrit 41.3 % (36.0-46.0); Hemoglobin 14.5 g/dL (12.2-16.2); Lymphocytes # (auto) 0.6 10 ^3/uL (0.4-5.4); Lymphocytes % (auto) 4.2 % (10.0-50.0); Mean Corpuscular Hemoglobin 29.9 pg (28.0-32.0); Mean Corpuscular Volume 85.4 fL (80.0-100.0); Monocytes # (auto) 0.3 10 ^3/uL (0-1.3); Monocytes % (auto) 1.9 % (0.0-12.0); Neutrophils # (auto) 14.3 10 ^3/uL (1.6-8.6); Neutrophils % (auto) 93.1 % (37.0-80.0); Nucleated Red Blood Cells % 0.3 %; Red Blood Cells 4.84 10^6/uL (4.0-5.20); Red Cell Distribution Width 14.7 % (11.8-14.3); White Blood Cell 15.4 10^3/uL (4.4-10.8)
[2021-05-09] MEDS ORDERED: PROCHLORPERAZINE EDISYLATE 5 MG/ML 2ML VIAL IV ONE (13:45)
[2021-05-09 14:02] LABS: Urine Bacteria FEW /hpf (None Seen); Urine Blood 2+ /uL (Negative); Urine Mucus FEW (None Seen); Urine Specific Gravity 1.028 (1.001-1.035); Urine WBC 27 /hpf (0 - 5)
[2021-05-09] MEDS ORDERED: SODIUM CHLORIDE 0.9% 1,000 ML IVB ONE (15:15)
[2021-05-09 15:35] LABS: Magnesium 2.1 mg/dL (1.6-2.6)
[2021-05-09 16:50] LABS: Sodium 141 mmol/L (136-145)
[2021-05-09 16:51] LABS: Alanine Aminotransferase 20 U/L (13-56); Albumin 4.4 g/dL (3.4-5.0); Alkaline Phosphatase 86 U/L (45-117); Anion Gap 10 (5-15); Aspartate Aminotransferase 18 U/L (15-37); BUN/Creatinine Ratio 22.4; Bilirubin, Total 1.3 mg/dL (0.2-1.0); Blood Urea Nitrogen 17 mg/dL (7-18); Calcium 9.6 mg/dL (8.5-10.1); Carbon Dioxide 26 mmol/L (21-32); Chloride 105 mmol/L (98-107); GFR African American 97 mL/min; GFR Non-African American 80 mL/min; Glucose 134 mg/dL (74-106); Total Protein 7.8 g/dL (6.4-8.2)
[2021-05-09 16:54] LABS: Potassium 2.7 mmol/L (3.5-5.1)
[2021-05-09] MEDS ORDERED: cefTRIAXone 1GM/50ML D5W 50 ML IV ONE (17:15)
[2021-05-09] MEDS ORDERED: POTASSIUM CHLORIDE 40 MEQ in D5W/LACTATED RINGERS 1,000 ML IV SCH (17:15)
[2021-05-09] MEDS ORDERED: MORPHINE SULFATE INJECTION 2 MG/ML SYRG IV ONE (17:30)
[2021-05-09] MEDS ORDERED: D5W/SOD CHL 0.9%/KCL 40MEQ 1,000 ML IV ONE (17:30)
[2021-05-09] MEDS ORDERED: ONDANSETRON HCL 4 MG/2 ML VIAL IV ONE (17:30)
[2021-05-09] MEDS ORDERED: OXYCODONE W/ ACETAMINOPHEN 5/325MG TABLET PO PRN (19:00)
[2021-05-09] MEDS ORDERED: ONDANSETRON HCL 4 MG/2 ML VIAL IV PRN (19:00)
[2021-05-09] MEDS ORDERED: DOCUSATE SOD 100 MG CAP PO PRN (19:00)
[2021-05-09] MEDS ORDERED: POTASSIUM EFFERVESENT TAB 25 MEQ GT ONE (19:00)
[2021-05-09] MEDS ORDERED: NIFEdipine 10 MG CAP PO ONE (21:15)
[2021-05-09 22:00] VITALS: BP 184/84
[2021-05-09 22:25] LABS: Anion Gap 10 (5-15); BUN/Creatinine Ratio 21.4; Blood Urea Nitrogen 15 mg/dL (7-18); Calcium 8.9 mg/dL (8.5-10.1); Carbon Dioxide 24 mmol/L (21-32); Chloride 105 mmol/L (98-107); GFR African American 106 mL/min; GFR Non-African American 88 mL/min; Glucose 127 mg/dL (74-106); Potassium 3.2 mmol/L (3.5-5.1); Sodium 139 mmol/L (136-145)
[2021-05-09 22:30] VITALS: BP 138/88
[2021-05-09] MEDS: ACETAMINOPHEN 500 MG TAB PO PRN (22:41)
[2021-05-09 23:30] VITALS: BP 138/88
[2021-05-10] MEDS: ACETAMINOPHEN 500 MG TAB PO PRN ×2 (04:31→10:32)
[2021-05-10 05:00] VITALS: BP 141/72
[2021-05-10 06:44] LABS: Basophils # (auto) 0.1 10 ^3/uL (0-0.2); Basophils % (auto) 0.4 % (0.0-2.0); Eosinophils # (auto) 0 10 ^3/uL (0-0.8); Eosinophils % (auto) 0.1 % (0.0-7.0); Hematocrit 40.4 % (36.0-46.0); Hemoglobin 14.3 g/dL (12.2-16.2); Lymphocytes # (auto) 1.3 10 ^3/uL (0.4-5.4); Lymphocytes % (auto) 8.8 % (10.0-50.0); Mean Corpuscular Hemoglobin 30.2 pg (28.0-32.0); Mean Corpuscular Hgb Conc. 35.3 g/dL (32.0-36.0); Mean Corpuscular Volume 85.6 fL (80.0-100.0); Monocytes # (auto) 0.8 10 ^3/uL (0-1.3); Monocytes % (auto) 5.4 % (0.0-12.0); Neutrophils # (auto) 12.4 10 ^3/uL (1.6-8.6); Neutrophils % (auto) 85.3 % (37.0-80.0); Nucleated Red Blood Cells % 0.3 %; Red Blood Cells 4.72 10^6/uL (4.0-5.20); Red Cell Distribution Width 14.5 % (11.8-14.3); White Blood Cell 14.5 10^3/uL (4.4-10.8)
[2021-05-10 06:58] LABS: Albumin 4.3 g/dL (3.4-5.0); Calcium 9.4 mg/dL (8.5-10.1); Magnesium 2.1 mg/dL (1.6-2.6)
[2021-05-10 07:02] LABS: Potassium 2.6 mmol/L (3.5-5.1)
[2021-05-10 07:03] LABS: Bilirubin, Total 1.4 mg/dL (0.2-1.0); Phosphorus 2.1 mg/dL (2.5-4.90); Total Protein 7.9 g/dL (6.4-8.2)
[2021-05-10] MEDS: PANTOPRAZOLE 40 MG TAB PO SCH (07:05)
[2021-05-10 07:31] LABS: BUN/Creatinine Ratio 21.2
[2021-05-10] MEDS: POTASSIUM CHL 20MEQ/100ML 100 ML IV SCH ×4 (07:56→18:22)
[2021-05-10 09:00] VITALS: BP_SYST 158; BP_SYST 187; BP_DIAS 82; BP_DIAS 93
[2021-05-10] MEDS: ASPirin-EC 81 mg tab PO SCH (10:20)
[2021-05-10] MEDS: predniSONE 5 MG TAB PO SCH (10:20)
[2021-05-10] MEDS: ENOXAPARIN SOD 40 MG/0.4 ML SYRINGE SC SCH (10:20)
[2021-05-10] MEDS: cefTRIAXone 1GM/50ML D5W 50 ML IV SCH (10:21)
[2021-05-10] MEDS: NIFEdipine ER 30 MG TAB PO SCH (10:21)
[2021-05-10] MEDS ORDERED: AZITHROMYCIN 500MG/ 250ML 250 ML IV ONE (11:45)
[2021-05-10] MEDS: OXYCODONE W/ ACETAMINOPHEN 5/325MG TABLET PO PRN ×2 (12:33→20:00)
[2021-05-10] MEDS: cloNIDine HCL 0.1 MG TAB PO PRN (12:34)
[2021-05-10 16:48] VITALS: BP 134/88
[2021-05-10] MEDS: DOXYCYCLINE 100MG/250ML 250 ML IV SCH (18:22)
[2021-05-10 22:56] VITALS: BP 152/90
[2021-05-11] MEDS: DOXYCYCLINE 100MG/250ML 250 ML IV SCH ×2 (00:59→09:46)
[2021-05-11] MEDS: OXYCODONE W/ ACETAMINOPHEN 5/325MG TABLET PO PRN ×3 (01:13→11:29)
[2021-05-11 05:58] VITALS: BP 153/92
[2021-05-11 06:44] LABS: Basophils # (auto) 0.1 10 ^3/uL (0-0.2); Basophils % (auto) 0.8 % (0.0-2.0); Eosinophils # (auto) 0 10 ^3/uL (0-0.8); Eosinophils % (auto) 0.1 % (0.0-7.0); Hematocrit 43.9 % (36.0-46.0); Hemoglobin 15.6 g/dL (12.2-16.2); Mean Corpuscular Hemoglobin 30.3 pg (28.0-32.0); Mean Corpuscular Hgb Conc. 35.5 g/dL (32.0-36.0); Mean Corpuscular Volume 85.3 fL (80.0-100.0); Monocytes # (auto) 0.7 10 ^3/uL (0-1.3); Monocytes % (auto) 6.2 % (0.0-12.0); Neutrophils # (auto) 8.3 10 ^3/uL (1.6-8.6); Neutrophils % (auto) 74.9 % (37.0-80.0); Nucleated Red Blood Cells % 0.6 %; Red Blood Cells 5.15 10^6/uL (4.0-5.20); Red Cell Distribution Width 14.7 % (11.8-14.3); White Blood Cell 11.1 10^3/uL (4.4-10.8)
[2021-05-11] MEDS: PANTOPRAZOLE 40 MG TAB PO SCH (06:45)
[2021-05-11 07:23] LABS: Albumin 4.2 g/dL (3.4-5.0); BUN/Creatinine Ratio 28.8; Calcium 9.9 mg/dL (8.5-10.1); Magnesium 2.2 mg/dL (1.6-2.6); Potassium 3.3 mmol/L (3.5-5.1)
[2021-05-11 07:25] LABS: Bilirubin, Total 1.4 mg/dL (0.2-1.0); Phosphorus 2.3 mg/dL (2.5-4.90); Total Protein 7.7 g/dL (6.4-8.2)
[2021-05-11 09:00] VITALS: BP 152/95
[2021-05-11] MEDS: predniSONE 5 MG TAB PO SCH (09:46)
[2021-05-11] MEDS: NIFEdipine ER 30 MG TAB PO SCH (09:46)
[2021-05-11] MEDS: cefTRIAXone 1GM/50ML D5W 50 ML IV SCH (09:46)
[2021-05-11] MEDS: ASPirin-EC 81 mg tab PO SCH (09:46)
[2021-05-11] MEDS: ENOXAPARIN SOD 40 MG/0.4 ML SYRINGE SC SCH (09:46)
[2021-05-11] MEDS ORDERED: AZITHROMYCIN 500MG/ 250ML 250 ML IV SCH (10:00)
[2021-05-11] MEDS: cloNIDine HCL 0.1 MG TAB PO PRN (11:11)
[2021-05-11] MEDS: ACETAMINOPHEN 500 MG TAB PO PRN (11:15)
[2021-05-11 13:00] VITALS: BP 137/96
[2021-05-11 17:00] VITALS: BP 108/76
== END 2021-05-11 14:54 | disposition left against medical advice (07) | DRG 871 ==
LOC: EDBD 11:59 → ER 11:59 → OVERFLOW 18:56 → WEST WING 20:27
PROVIDERS: ADMIT Student in an Organized Health Care Education/Training Program; ATTEND Family Medicine
DX: A41.9 Sepsis, unspecified organism (principal); J18.9 Pneumonia, unspecified organism; E43 Unspecified severe protein-calorie malnutrition; N10 Acute pyelonephritis; J44.0 Chronic obstructive pulmonary disease with (acute) lower respiratory infection; Z68.1 Body mass index [BMI] 19.9 or less, adult; N39.0 Urinary tract infection, site not specified; K52.9 Noninfective gastroenteritis and colitis, unspecified; K21.9 Gastro-esophageal reflux disease without esophagitis; M16.12 Unilateral primary osteoarthritis, left hip; E87.6 Hypokalemia; I10 Essential (primary) hypertension; Z20.822 Contact with and (suspected) exposure to COVID-19; M06.9 Rheumatoid arthritis, unspecified; Z53.29 Procedure and treatment not carried out because of patient's decision for other reasons; F17.210 Nicotine dependence, cigarettes, uncomplicated; Z82.49 Family history of ischemic heart disease and other diseases of the circulatory system; Z83.3 Family history of diabetes mellitus; Z90.710 Acquired absence of both cervix and uterus; Z79.899 Other long term (current) drug therapy; Z88.8 Allergy status to other drugs, medicaments and biological substances; Z90.49 Acquired absence of other specified parts of digestive tract; Z71.6 Tobacco abuse counseling
CPT/HCPCS: 36415; 71045; 72170; 73502; 74176; 74177; 76705; 80048; 80053; 81001; 83690; 83735; 84100; 84443; 84484; 85025; 87040; 87086; 93005; 96361; 96374; 96375; G0378; J0696; J1885; J2405; J3480; J3490

== ENCOUNTER → 2021-06-23 | Emergency (ER) | payer MEDICARE, MEDICAID ==
[~2021-06-23] VITALS: Ht 162.6 cm; Wt 49.9 kg
[~2021-06-23] MED LIST changes: +AMOX-277 PO; -ASPI-543 PO; -DOCU-94 PO; +LABETALOL HCL 5 MG/ML 4ML SYRINGE IV ONE; +MORPHINE SULFATE 4 MG/ML SYR/VIAL IV ONE; -NIFE1TAB31 PO; +ONDANSETRON HCL 4 MG/2 ML VIAL IV ONE; -PANT40TA2 PO; -PERCOT PO; -PRED10TA PO; +PROCHLORPERAZINE EDISYLATE 5 MG/ML 2ML VIAL IV ONE; -SENN1TAB14 PO; +SODIUM CHLORIDE 0.9% 1,000 ML IV ONE; +SODIUM CHLORIDE 0.9% 500 ML IVB ONE; +cefTRIAXone 1GM/50ML D5W 50 ML IV ONE; +metroNIDAZOLE 500MG/100ML 100 ML IV ONE
[2021-06-23 10:20] LABS: Basophils # (auto) 0.2 10 ^3/uL (0-0.2); Basophils % (auto) 1.2 % (0.0-2.0); Eosinophils # (auto) 0.1 10 ^3/uL (0-0.8); Eosinophils % (auto) 0.4 % (0.0-7.0); Hematocrit 46.1 % (36.0-46.0); Hemoglobin 15.4 g/dL (12.2-16.2); Lymphocytes # (auto) 0.8 10 ^3/uL (0.4-5.4); Lymphocytes % (auto) 5.5 % (10.0-50.0); Mean Corpuscular Hemoglobin 29.6 pg (28.0-32.0); Mean Corpuscular Hgb Conc. 33.5 g/dL (32.0-36.0); Mean Corpuscular Volume 88.5 fL (80.0-100.0); Monocytes # (auto) 0.4 10 ^3/uL (0-1.3); Monocytes % (auto) 2.7 % (0.0-12.0); Neutrophils # (auto) 13.4 10 ^3/uL (1.6-8.6); Neutrophils % (auto) 90.2 % (37.0-80.0); Nucleated Red Blood Cells % 0.2 %; Red Blood Cells 5.21 10^6/uL (4.0-5.20); Red Cell Distribution Width 14.6 % (11.8-14.3); White Blood Cell 14.8 10^3/uL (4.4-10.8)
[2021-06-23 10:46] LABS: Albumin 4.5 g/dL (3.4-5.0); Calcium 9.8 mg/dL (8.5-10.1); Potassium 3.1 mmol/L (3.5-5.1)
[2021-06-23 10:50] LABS: BUN/Creatinine Ratio 19.8; Bilirubin, Total 1.9 mg/dL (0.2-1.0); Total Protein 8.7 g/dL (6.4-8.2)
[2021-06-23 13:08] LABS: Magnesium 2.1 mg/dL (1.6-2.6)
[2021-06-23 14:54] LABS: Urine Amorphous Crystal FEW /hpf (None Seen); Urine Bacteria NONE SEEN /hpf (None Seen); Urine Blood 1+ /uL (Negative); Urine Mucus FEW (None Seen); Urine Specific Gravity 1.013 (1.001-1.035); Urine WBC 5 /hpf (0 - 5)
[2021-06-23] MEDS: MAGNESIUM SULFATE 1GM/100ML 100 ML IV SCH ×2 (18:48→19:30)
[2021-06-23 19:20] VITALS: BP 165/77
== END | disposition home or self-care (01) ==
LOC: EDUNIT# 08:39 → ER 08:47 → EDBD 08:47
DX: R53.1 Weakness (principal); K85.90 Acute pancreatitis without necrosis or infection, unspecified; K80.50 Calculus of bile duct without cholangitis or cholecystitis without obstruction; E87.6 Hypokalemia; R94.31 Abnormal electrocardiogram [ECG] [EKG]; I10 Essential (primary) hypertension; J44.9 Chronic obstructive pulmonary disease, unspecified; Z87.891 Personal history of nicotine dependence; Z90.49 Acquired absence of other specified parts of digestive tract; Z90.89 Acquired absence of other organs; Z90.710 Acquired absence of both cervix and uterus; Z88.8 Allergy status to other drugs, medicaments and biological substances; Z20.822 Contact with and (suspected) exposure to COVID-19
CPT/HCPCS: 36415; 71045; 74176; 76705; 80053; 81001; 83690; 83735; 84484; 85025; 87426; 93005; 96361; 96374; 96375; 99285; J0780; J2270; J2405; J3475; J3490; J7030; J7040

== ENCOUNTER 2021-07-08 14:28 | Inpatient (IN) | payer MEDICARE, MEDICAID ==
[~2021-07-08] VITALS: Ht 160 cm; Wt 45.3 kg
[~2021-07-08 14:28] MED LIST changes: -LABETALOL HCL 5 MG/ML 4ML SYRINGE IV ONE; -MORPHINE SULFATE 4 MG/ML SYR/VIAL IV ONE; -ONDANSETRON HCL 4 MG/2 ML VIAL IV ONE; -PROCHLORPERAZINE EDISYLATE 5 MG/ML 2ML VIAL IV ONE; -SODIUM CHLORIDE 0.9% 1,000 ML IV ONE; -SODIUM CHLORIDE 0.9% 500 ML IVB ONE; -cefTRIAXone 1GM/50ML D5W 50 ML IV ONE; -metroNIDAZOLE 500MG/100ML 100 ML IV ONE
[2021-07-08 15:21] LABS: Basophils # (auto) 0.1 10 ^3/uL (0-0.2); Basophils % (auto) 0.5 % (0.0-2.0); Eosinophils # (auto) 0 10 ^3/uL (0-0.8); Eosinophils % (auto) 0.2 % (0.0-7.0); Hematocrit 41.7 % (36.0-46.0); Hemoglobin 14.8 g/dL (12.2-16.2); Lymphocytes # (auto) 0.7 10 ^3/uL (0.4-5.4); Lymphocytes % (auto) 4.9 % (10.0-50.0); Mean Corpuscular Hemoglobin 30.9 pg (28.0-32.0); Mean Corpuscular Hgb Conc. 35.6 g/dL (32.0-36.0); Mean Corpuscular Volume 86.8 fL (80.0-100.0); Monocytes # (auto) 0.3 10 ^3/uL (0-1.3); Neutrophils # (auto) 13.1 10 ^3/uL (1.6-8.6); Neutrophils % (auto) 92.4 % (37.0-80.0); Red Cell Distribution Width 14.1 % (11.8-14.3); White Blood Cell 14.1 10^3/uL (4.4-10.8)
[2021-07-08 15:36] LABS: Calcium 9.3 mg/dL (8.5-10.1); Potassium 3.2 mmol/L (3.5-5.1)
[2021-07-08 15:39] LABS: BUN/Creatinine Ratio 25.9; Bilirubin, Total 1.3 mg/dL (0.2-1.0); Total Protein 7.8 g/dL (6.4-8.2)
[2021-07-08] MEDS ORDERED: HYDROmorphone HCL 2 MG/ML VL/or syr IV ONE (16:00)
[2021-07-08] MEDS ORDERED: METOCLOPRAMIDE HCL 5MG/ml INJ 2ml VIAL IV ONE (16:00)
[2021-07-08 16:19] LABS: Magnesium 1.9 mg/dL (1.6-2.6)
[2021-07-08] MEDS ORDERED: IOHEXOL 300 MG/ML 100ML BOTTLE IJ ONE (18:02)
[2021-07-08] MEDS ORDERED: cloNIDine HCL 0.1 MG TAB PO ONE (18:45)
[2021-07-08] MEDS ORDERED: POTASSIUM EFFERVESENT TAB 25 MEQ PO ONE (18:45)
[2021-07-09] MEDS ORDERED: PIPERACILLIN-TAZOB 3.375GM 100 ML IV ONE (02:15)
[2021-07-09] MEDS ORDERED: ACETAMINOPHEN 325 MG TAB PO PRN (03:15)
[2021-07-09] MEDS: HYDROcodone-ACET 5/325MG TAB PO PRN ×4 (03:27→22:32)
[2021-07-09] MEDS ORDERED: KETOROLAC TROMETH 30 MG/ML 1ML VIAL IV ONE (05:23)
[2021-07-09] MEDS: ONDANSETRON HCL 4 MG/2 ML VIAL IV PRN ×2 (05:51→16:05)
[2021-07-09 06:43] VITALS: BP 135/67
[2021-07-09 09:01] VITALS: BP 107/74
[2021-07-09] MEDS: cefTRIAXone 1GM/50ML D5W 50 ML IV SCH (09:53)
[2021-07-09] MEDS ORDERED: PANTOPRAZOLE 40 MG/10 ML VIAL INJ IV SCH (10:00)
[2021-07-09 10:30] LABS: INR 1.1 (0.9-1.15); Partial Thromboplastin Time 31.9 sec (23.6-33.0)
[2021-07-09] MEDS ORDERED: POTASSIUM EFFERVESENT TAB 25 MEQ PO ONE (12:45)
[2021-07-09 12:59] VITALS: BP 159/85
[2021-07-09] MEDS: SODIUM CHLORIDE 0.9% 1,000 ML IV SCH (13:43)
[2021-07-09] MEDS: MORPHINE SULFATE INJ 2 MG/ml SYRG IV PRN ×2 (13:43→20:13)
[2021-07-09] MEDS: hydrALAZINE HCL 20 MG/ML VL IV PRN ×2 (16:06→22:29)
[2021-07-09 17:11] VITALS: BP 178/87
[2021-07-09 22:00] VITALS: BP_SYST 143; BP_SYST 173; BP_DIAS 69; BP_DIAS 84
[2021-07-10] MEDS: MORPHINE SULFATE INJ 2 MG/ml SYRG IV PRN ×3 (02:33→14:40)
[2021-07-10] MEDS: ONDANSETRON HCL 4 MG/2 ML VIAL IV PRN (02:36)
[2021-07-10] MEDS: hydrALAZINE HCL 20 MG/ML VL IV PRN (04:47)
[2021-07-10 05:00] VITALS: BP 166/67
[2021-07-10 06:29] LABS: Basophils # (auto) 0 10 ^3/uL (0-0.2); Basophils % (auto) 0.3 % (0.0-2.0); Eosinophils # (auto) 0 10 ^3/uL (0-0.8); Eosinophils % (auto) 0.1 % (0.0-7.0); Hemoglobin 14.2 g/dL (12.2-16.2); Lymphocytes # (auto) 1.3 10 ^3/uL (0.4-5.4); Lymphocytes % (auto) 12.9 % (10.0-50.0); Mean Corpuscular Hemoglobin 31.2 pg (28.0-32.0); Mean Corpuscular Hgb Conc. 35.5 g/dL (32.0-36.0); Mean Corpuscular Volume 87.6 fL (80.0-100.0); Monocytes # (auto) 0.6 10 ^3/uL (0-1.3); Monocytes % (auto) 5.7 % (0.0-12.0); Neutrophils # (auto) 8.3 10 ^3/uL (1.6-8.6); Nucleated Red Blood Cells % 0.1 %; Red Blood Cells 4.56 10^6/uL (4.0-5.20); Red Cell Distribution Width 14.1 % (11.8-14.3); White Blood Cell 10.2 10^3/uL (4.4-10.8)
[2021-07-10 06:35] LABS: Calcium 8.8 mg/dL (8.5-10.1)
[2021-07-10 06:41] LABS: Albumin 3.6 g/dL (3.4-5.0); BUN/Creatinine Ratio 28.8; Bilirubin, Total 1.4 mg/dL (0.2-1.0)
[2021-07-10 06:47] LABS: Potassium 2.8 mmol/L (3.5-5.1)
[2021-07-10] MEDS: SODIUM CHLORIDE 0.9% 1,000 ML IV SCH ×3 (07:53→08:31)
[2021-07-10] MEDS: cefTRIAXone 1GM/50ML D5W 50 ML IV SCH (08:31)
[2021-07-10 09:00] VITALS: BP 138/68
[2021-07-10] MEDS ORDERED: POTASSIUM CHLORIDE 60 MEQ, LIDOCAINE 1% (LOCAL ANESTH.) 6 ML in SODIUM CHL 0.9% 500 ML IV ONE (10:45)
[2021-07-10 13:00] VITALS: BP 150/75
[2021-07-10] MEDS ORDERED: metroNIDAZOLE 500MG/100ML 100 ML IV SCH (14:00)
[2021-07-10 14:40] VITALS: BP 150/75
== END 2021-07-10 18:23 | disposition left against medical advice (07) | DRG 871 ==
LOC: ER 14:28 → EDBD 14:28 → OVERFLOW 07-09 03:08 → EAST 07-09 04:30
PROVIDERS: ADMIT Nurse Practitioner; ATTEND Family Medicine
DX: A41.9 Sepsis, unspecified organism (principal); G93.41 Metabolic encephalopathy; K80.00 Calculus of gallbladder with acute cholecystitis without obstruction; R64 Cachexia; Z68.1 Body mass index [BMI] 19.9 or less, adult; E87.6 Hypokalemia; J44.9 Chronic obstructive pulmonary disease, unspecified; M19.90 Unspecified osteoarthritis, unspecified site; I10 Essential (primary) hypertension; Z53.21 Procedure and treatment not carried out due to patient leaving prior to being seen by health care provider; E88.09 Other disorders of plasma-protein metabolism, not elsewhere classified; Z20.822 Contact with and (suspected) exposure to COVID-19; E86.0 Dehydration; Z82.49 Family history of ischemic heart disease and other diseases of the circulatory system; Z83.3 Family history of diabetes mellitus; Z88.8 Allergy status to other drugs, medicaments and biological substances; Z87.891 Personal history of nicotine dependence; Z90.710 Acquired absence of both cervix and uterus
CPT/HCPCS: 36415; 70450; 71045; 74177; 76705; 80053; 82962; 83690; 83735; 84132; 85025; 85610; 85730; 86850; 86900; 86901; 93005; 96365; 96375; C9113; G0378; J0696; J1885; J2001; J2405; J2543

== ENCOUNTER 2021-07-12 22:44 | Inpatient (IN) | payer MEDICARE, MEDICAID ==
[~2021-07-12] VITALS: Ht 162.6 cm; Wt 54.0 kg
[2021-07-12 23:52] LABS: Basophils # (auto) 0.2 10 ^3/uL (0-0.2); Basophils % (auto) 2.3 % (0.0-2.0); Eosinophils # (auto) 0.2 10 ^3/uL (0-0.8); Eosinophils % (auto) 3.4 % (0.0-7.0); Hematocrit 40.9 % (36.0-46.0); Hemoglobin 13.9 g/dL (12.2-16.2); Lymphocytes # (auto) 1.9 10 ^3/uL (0.4-5.4); Lymphocytes % (auto) 28.5 % (10.0-50.0); Mean Corpuscular Hemoglobin 30.1 pg (28.0-32.0); Mean Corpuscular Hgb Conc. 34.1 g/dL (32.0-36.0); Mean Corpuscular Volume 88.5 fL (80.0-100.0); Monocytes # (auto) 0.5 10 ^3/uL (0-1.3); Neutrophils # (auto) 3.9 10 ^3/uL (1.6-8.6); Neutrophils % (auto) 58.8 % (37.0-80.0); Nucleated Red Blood Cells % 0.1 %; Red Blood Cells 4.62 10^6/uL (4.0-5.20); Red Cell Distribution Width 14.2 % (11.8-14.3); White Blood Cell 6.7 10^3/uL (4.4-10.8)
[2021-07-13 00:04] LABS: Albumin 3.7 g/dL (3.4-5.0); Calcium 8.9 mg/dL (8.5-10.1)
[2021-07-13 00:06] LABS: BUN/Creatinine Ratio 35.8
[2021-07-13 00:23] LABS: Bilirubin, Total 0.6 mg/dL (0.2-1.0); Total Protein 6.6 g/dL (6.4-8.2)
[2021-07-13] MEDS ORDERED: POTASSIUM EFFERVESENT TAB 25 MEQ PO ONE (00:30)
[2021-07-13] MEDS ORDERED: metroNIDAZOLE 500MG/100ML 100 ML IV ONE (01:15)
[2021-07-13] MEDS ORDERED: HYDROcodone-ACET 5/325MG TAB PO ONE (01:15)
[2021-07-13] MEDS ORDERED: FAMOTIDINE (10MG/ML) 2ML VL IV ONE (01:15)
[2021-07-13] MEDS ORDERED: ONDANSETRON HCL 4 MG/2 ML VIAL IV ONE ×2 (01:15→10:30)
[2021-07-13] MEDS ORDERED: ALUM & MAG HYDROX-SIMETH LIQ(MAALOX) 30 ML PO ONE (01:15)
[2021-07-13] MEDS ORDERED: CIPROFLOXACIN 400MG/200ML 200 ML IV ONE (01:15)
[2021-07-13] MEDS ORDERED: D5W/SOD CHL 0.45%/KCL 20MEQ 1,000 ML IV ONE (09:30)
[2021-07-13] MEDS ORDERED: SODIUM CHLORIDE 0.9% 500 ML IV ONE (10:30)
[2021-07-13] MEDS ORDERED: MORPHINE SULFATE INJ 2 MG/ml SYRG IV ONE (10:30)
[2021-07-13] MEDS ORDERED: MORPHINE SULFATE INJ 2 MG/ml SYRG IV PRN (10:30)
[2021-07-13 12:22] LABS: INR 1.1 (0.9-1.15); Partial Thromboplastin Time 28.5 sec (23.6-33.0)
[2021-07-13 12:35] LABS: Magnesium 2.7 mg/dL (1.6-2.6)
[2021-07-13] MEDS ORDERED: LIDOCAINE 1%-Mpf/Epinephrine 1:200,000 ONE (12:59)
[2021-07-13] MEDS ORDERED: fentaNYL CITRATE 100 MCG/2 ML VL ONE (13:01)
[2021-07-13] MEDS ORDERED: ceFAZolin 1GM/50ML 100 ML IV ONE (13:01)
[2021-07-13] MEDS ORDERED: ROCURONIUM 10MG/ML 10ML VIAL IV ONE (13:02)
[2021-07-13] MEDS ORDERED: MIDAZOLAM HCL 2MG/2ML 2ml VIAL (1mg/ml) ONE (13:02)
[2021-07-13] MEDS ORDERED: POVIDONE IODINE 10 % TOPICAL OINT 30GM TOP ONE (13:53)
[2021-07-13] MEDS ORDERED: PROPOFOL 10 MG/ML 20 ML IV ONE (13:54)
[2021-07-13] MEDS ORDERED: ONDANSETRON HCL 4 MG/2 ML VIAL ONE (13:54)
[2021-07-13] MEDS: metroNIDAZOLE 500MG/100ML 100 ML IV SCH ×4 (14:00→17:01)
[2021-07-13] MEDS ORDERED: GLYCOPYRROLATE 0.2 MG/ML 1ML VIAL ONE (14:07)
[2021-07-13] MEDS ORDERED: hydrALAZINE HCL 20 MG/ML VL ONE (14:13)
[2021-07-13] MEDS ORDERED: HYDROmorphone HCL 2 MG/ML VL/or syr IV ONE (14:15)
[2021-07-13] MEDS ORDERED: HYDROmorphone HCL 2 MG/ML VL/or syr ONE (14:29)
[2021-07-13] MEDS: HYDROmorphone HCL 2 MG/ML VL/or syr IV PRN ×5 (14:32→15:22)
[2021-07-13] MEDS ORDERED: HYDROmorphone HCL 2 MG/ML VL/or syr IV PRN (14:45)
[2021-07-13] MEDS ORDERED: ONDANSETRON HCL 4 MG/2 ML VIAL IV PRN (14:45)
[2021-07-13 17:10] VITALS: BP 142/63
[2021-07-13] MEDS: ONDANSETRON HCL 4 MG/2 ML VIAL IV PRN (18:02)
[2021-07-13 18:13] VITALS: BP 140/86
[2021-07-13 18:34] VITALS: BP 142/63
[2021-07-13] MEDS: POTASSIUM CHLORIDE 20 MEQ in D5W/LACTATED RINGERS 1,000 ML IV SCH (19:00)
[2021-07-13] MEDS: MORPHINE SULFATE 4 MG/ML SYR/VIAL IV PRN (21:21)
[2021-07-13 22:00] VITALS: BP 180/89
[2021-07-13] MEDS: hydrALAZINE HCL 20 MG/ML VL IV PRN (23:47)
[2021-07-14] MEDS: POTASSIUM CHLORIDE 20 MEQ in D5W/LACTATED RINGERS 1,000 ML IV SCH ×3 (00:41→20:33)
[2021-07-14 00:45] LABS: Urine Amorphous Crystal FEW /hpf (None Seen); Urine Bacteria FEW /hpf (None Seen); Urine Blood Negative /uL (Negative); Urine Specific Gravity 1.014 (1.001-1.035); Urine WBC 2 /hpf (0 - 5)
[2021-07-14] MEDS: ONDANSETRON HCL 4 MG/2 ML VIAL IV PRN ×5 (01:21→20:45)
[2021-07-14] MEDS: MORPHINE SULFATE 4 MG/ML SYR/VIAL IV PRN ×5 (01:21→20:45)
[2021-07-14] MEDS ORDERED: PRE1T PO (02:14)
[2021-07-14] MEDS ORDERED: OXYC-963 (02:14)
[2021-07-14 05:00] VITALS: BP 171/85
[2021-07-14] MEDS: metroNIDAZOLE 500MG/100ML 100 ML IV SCH ×3 (05:51→23:39)
[2021-07-14] MEDS: hydrALAZINE HCL 20 MG/ML VL IV PRN ×2 (05:51→23:40)
[2021-07-14 07:01] LABS: Basophils # (auto) 0.1 10 ^3/uL (0-0.2); Basophils % (auto) 0.4 % (0.0-2.0); Eosinophils # (auto) 0 10 ^3/uL (0-0.8); Eosinophils % (auto) 0.1 % (0.0-7.0); Hematocrit 40.4 % (36.0-46.0); Hemoglobin 14.1 g/dL (12.2-16.2); Lymphocytes # (auto) 1.4 10 ^3/uL (0.4-5.4); Lymphocytes % (auto) 10.7 % (10.0-50.0); Mean Corpuscular Volume 88.4 fL (80.0-100.0); Monocytes # (auto) 0.7 10 ^3/uL (0-1.3); Monocytes % (auto) 5.3 % (0.0-12.0); Neutrophils # (auto) 11.1 10 ^3/uL (1.6-8.6); Neutrophils % (auto) 83.5 % (37.0-80.0); Red Blood Cells 4.56 10^6/uL (4.0-5.20); Red Cell Distribution Width 14.2 % (11.8-14.3); White Blood Cell 13.3 10^3/uL (4.4-10.8)
[2021-07-14 07:19] LABS: Albumin 3.8 g/dL (3.4-5.0); Potassium 3.1 mmol/L (3.5-5.1)
[2021-07-14 07:21] LABS: BUN/Creatinine Ratio 18.3
[2021-07-14 07:26] LABS: Bilirubin, Total 1.5 mg/dL (0.2-1.0); Total Protein 6.8 g/dL (6.4-8.2)
[2021-07-14 09:00] VITALS: BP 141/69
[2021-07-14] MEDS: cefTRIAXone 1GM/50ML D5W 50 ML IV SCH (09:57)
[2021-07-14] MEDS ORDERED: D5W/SOD CHL 0.45%/KCL 40MEQ 1,000 ML IV SCH (10:00)
[2021-07-14 13:00] VITALS: BP 145/75
[2021-07-14] MEDS: KETOROLAC TROMETH 30 MG/ML 1ML VIAL IV PRN ×2 (15:00→23:40)
[2021-07-14 17:00] VITALS: BP 159/80
[2021-07-14] MEDS ORDERED: MORPHINE SULFATE 4 MG/ML SYR/VIAL IV PRN (20:42)
[2021-07-14 22:00] VITALS: BP 165/85
[2021-07-15] MEDS: ONDANSETRON HCL 4 MG/2 ML VIAL IV PRN ×3 (00:50→09:28)
[2021-07-15] MEDS: MORPHINE SULFATE 4 MG/ML SYR/VIAL IV PRN ×6 (00:50→23:39)
[2021-07-15] MEDS: POTASSIUM CHLORIDE 20 MEQ in D5W/LACTATED RINGERS 1,000 ML IV SCH ×2 (01:40→19:06)
[2021-07-15 05:00] VITALS: BP 118/76
[2021-07-15] MEDS: metroNIDAZOLE 500MG/100ML 100 ML IV SCH ×3 (06:00→21:24)
[2021-07-15 07:20] LABS: BUN/Creatinine Ratio 18.8; Bilirubin, Total 1.1 mg/dL (0.2-1.0); Calcium 8.7 mg/dL (8.5-10.1); Potassium 3.3 mmol/L (3.5-5.1)
[2021-07-15 07:23] LABS: Basophils # (auto) 0.1 10 ^3/uL (0-0.2); Basophils % (auto) 0.7 % (0.0-2.0); Eosinophils # (auto) 0.1 10 ^3/uL (0-0.8); Eosinophils % (auto) 1.6 % (0.0-7.0); Hematocrit 37.8 % (36.0-46.0); Hemoglobin 12.9 g/dL (12.2-16.2); Lymphocytes # (auto) 1.4 10 ^3/uL (0.4-5.4); Lymphocytes % (auto) 19.4 % (10.0-50.0); Mean Corpuscular Hemoglobin 30.6 pg (28.0-32.0); Mean Corpuscular Hgb Conc. 34.1 g/dL (32.0-36.0); Mean Corpuscular Volume 89.6 fL (80.0-100.0); Monocytes # (auto) 0.6 10 ^3/uL (0-1.3); Monocytes % (auto) 8.1 % (0.0-12.0); Neutrophils # (auto) 5.1 10 ^3/uL (1.6-8.6); Neutrophils % (auto) 70.2 % (37.0-80.0); Nucleated Red Blood Cells % 0.1 %; Red Blood Cells 4.21 10^6/uL (4.0-5.20); Red Cell Distribution Width 14.1 % (11.8-14.3); White Blood Cell 7.3 10^3/uL (4.4-10.8)
[2021-07-15 09:00] VITALS: BP 105/72
[2021-07-15] MEDS: cefTRIAXone 1GM/50ML D5W 50 ML IV SCH (09:19)
[2021-07-15 13:00] VITALS: BP 117/72
[2021-07-15 17:00] VITALS: BP 123/70
[2021-07-15 22:00] VITALS: BP 114/67
[2021-07-16] MEDS: POTASSIUM CHLORIDE 20 MEQ in D5W/LACTATED RINGERS 1,000 ML IV SCH ×2 (02:51→12:02)
[2021-07-16 05:00] VITALS: BP 117/65
[2021-07-16] MEDS: metroNIDAZOLE 500MG/100ML 100 ML IV SCH ×2 (05:15→13:40)
[2021-07-16] MEDS: MORPHINE SULFATE 4 MG/ML SYR/VIAL IV PRN (06:47)
[2021-07-16 08:00] VITALS: BP 100/66
[2021-07-16] MEDS: cefTRIAXone 1GM/50ML D5W 50 ML IV SCH (08:00)
[2021-07-16 09:00] VITALS: BP 106/66
[2021-07-16] MEDS ORDERED: METR500T PO (12:06)
[2021-07-16] MEDS ORDERED: LEVO500T31 PO (12:06)
[2021-07-16 12:31] VITALS: BP 136/73
[2021-07-16 16:22] VITALS: BP 100/66
[2021-07-16 17:15] VITALS: BP 111/66
== END 2021-07-16 18:48 | disposition home or self-care (01) | DRG 854 ==
LOC: ER 22:44 → EDBD 22:44 → EDUNIT# 22:44 → OVERFLOW 07-13 10:23 → WEST WING 07-13 16:44
PROVIDERS: ADMIT Registered Nurse; ATTEND Family Medicine
PROC: 0FT44ZZ Resection of Gallbladder, Percutaneous Endoscopic Approach (ICD-10-PCS; principal; 2021-07-13 13:07)
DX: A41.9 Sepsis, unspecified organism (principal); K80.00 Calculus of gallbladder with acute cholecystitis without obstruction; N18.2 Chronic kidney disease, stage 2 (mild); Z20.822 Contact with and (suspected) exposure to COVID-19; E86.0 Dehydration; M19.90 Unspecified osteoarthritis, unspecified site; J44.9 Chronic obstructive pulmonary disease, unspecified; Z82.49 Family history of ischemic heart disease and other diseases of the circulatory system; Z83.3 Family history of diabetes mellitus; Z87.891 Personal history of nicotine dependence; Z90.710 Acquired absence of both cervix and uterus; Z88.8 Allergy status to other drugs, medicaments and biological substances
CPT/HCPCS: 36415; 71045; 80048; 80053; 80061; 81001; 82247; 83690; 83735; 84484; 85025; 85610; 85730; 86850; 86900; 86901; 87493; 93005; 96365; 96375; 97116; 97163; 97530; G0378; J0690; J0696; J1885; J2250; J2405; J2704; J3490

== ENCOUNTER 2021-10-03 16:17 | Inpatient (IN) | payer MEDICARE, MEDICAID ==
[~2021-10-03] VITALS: Ht 175.3 cm; Wt 43.0 kg
[~2021-10-03 16:17] MED LIST changes: +LEVO500T31 PO; +METR500T PO; +OXYC-963; +PRE1T PO
[2021-10-03 17:37] LABS: Basophils # (auto) 0 10 ^3/uL (0-0.2); Basophils % (auto) 0.7 % (0.0-2.0); Eosinophils # (auto) 0.1 10 ^3/uL (0-0.8); Eosinophils % (auto) 1.1 % (0.0-7.0); Hemoglobin 13.4 g/dL (12.2-16.2); Lymphocytes # (auto) 0.7 10 ^3/uL (0.4-5.4); Lymphocytes % (auto) 15.2 % (10.0-50.0); Mean Corpuscular Hemoglobin 29.1 pg (28.0-32.0); Mean Corpuscular Hgb Conc. 33.5 g/dL (32.0-36.0); Mean Corpuscular Volume 86.8 fL (80.0-100.0); Monocytes # (auto) 0.3 10 ^3/uL (0-1.3); Monocytes % (auto) 6.6 % (0.0-12.0); Neutrophils # (auto) 3.5 10 ^3/uL (1.6-8.6); Neutrophils % (auto) 76.4 % (37.0-80.0); Nucleated Red Blood Cells % 0.1 %; Red Blood Cells 4.61 10^6/uL (4.0-5.20); Red Cell Distribution Width 16.4 % (11.8-14.3); White Blood Cell 4.6 10^3/uL (4.4-10.8)
[2021-10-03] MEDS ORDERED: ALBUTEROL SULF 2.5 MG/0.5ML(0.5%) NEB SOLN NEB ONE (19:15)
[2021-10-03] MEDS ORDERED: methylPREDNISolone SOD SUCC 125 MG/2 ML VL IV ONE (19:15)
[2021-10-03] MEDS ORDERED: IPRATROPIUM BROM 0.5 MG/2.5ML INH SOL NEB ONE (19:15)
[2021-10-03] MEDS ORDERED: MAGNESIUM SULFATE 1GM/100ML 100 ML IV ONE (19:15)
[2021-10-03] MEDS ORDERED: HYDROcodone-ACET 5/325MG TAB PO ONE (19:15)
[2021-10-03 20:24] LABS: Albumin 3.4 g/dL (3.4-5.0); BUN/Creatinine Ratio 27.1; Calcium 8.6 mg/dL (8.5-10.1); Potassium 3.4 mmol/L (3.5-5.1)
[2021-10-03 20:27] LABS: Bilirubin, Total 0.6 mg/dL (0.2-1.0); Total Protein 6.6 g/dL (6.4-8.2)
[2021-10-03] MEDS ORDERED: ACETAMINOPHEN 325 MG TAB PO PRN (21:15)
[2021-10-03] MEDS ORDERED: ALBUTEROL SULF 2.5 MG/0.5ML(0.5%) NEB SOLN NEB PRN (21:15)
[2021-10-03] MEDS ORDERED: ONDANSETRON HCL 4 MG/2 ML VIAL IV PRN (21:15)
[2021-10-03] MEDS ORDERED: NITROGLYCERIN 0.4 MG SL TAB SL PRN (21:15)
[2021-10-03] MEDS ORDERED: MORPHINE SULFATE INJ 2 MG/ml SYRG IV PRN (21:15)
[2021-10-03] MEDS ORDERED: IPRATROPIUM BROM 0.5 MG/2.5ML INH SOL NEB PRN (21:15)
[2021-10-03 21:21] VITALS: BP 140/87
[2021-10-03] MEDS ORDERED: methylPREDNISolone SOD SUCC 40 MG/ML VL IV SCH (22:00)
[2021-10-03] MEDS: HYDROcodone-ACET 5/325MG TAB PO PRN (22:35)
[2021-10-03] MEDS ORDERED: DexAMETHasone SOD PHOS 10MG/1ML VIAL INJ IV ONE (23:00)
[2021-10-04] MEDS ORDERED: FUROSEMIDE 40 MG/4 ML VIAL IV ONE (03:30)
[2021-10-04 04:31] LABS: Anion Gap 10 (5-15); BUN/Creatinine Ratio 27.3; Blood Urea Nitrogen 18 mg/dL (7-18); Calcium 8.4 mg/dL (8.5-10.1); Carbon Dioxide 25 mmol/L (21-32); Chloride 103 mmol/L (98-107); GFR African American 114 mL/min; GFR Non-African American 94 mL/min; Glucose 165 mg/dL (74-106); Potassium 3.4 mmol/L (3.5-5.1); Sodium 138 mmol/L (136-145)
[2021-10-04 05:48] LABS: Hemoglobin 12.9 g/dL (12.2-16.2); Mean Corpuscular Hgb Conc. 33.8 g/dL (32.0-36.0); Mean Corpuscular Volume 85.7 fL (80.0-100.0); Red Blood Cells 4.44 10^6/uL (4.0-5.20)
[2021-10-04 05:59] LABS: White Blood Cell 1.2 10^3/uL (4.4-10.8)
[2021-10-04 06:01] LABS: Basophils % (manual) 0 (0.0-2.0); Blast Cells 0; Eosinophils % (manual) 0 (0-7); Metamyelocytes % 0; Myelocytes % 0; Promyelocytes % 0; Reactive Lymphocytes 0
[2021-10-04 06:51] LABS: Band Neutrophils % (manual) 2; Lymphocytes % (manual) 17 (10.0-50.0); Monocytes % (manual) 3 (0-12)
[2021-10-04 06:58] LABS: Urine Bacteria FEW /hpf (None Seen); Urine Blood Negative /uL (Negative); Urine Mucus FEW (None Seen); Urine Specific Gravity 1.022 (1.001-1.035); Urine WBC 6 /hpf (0 - 5)
[2021-10-04 08:30] VITALS: BP 125/68
[2021-10-04 09:00] VITALS: BP 125/68
[2021-10-04] MEDS: methylPREDNISolone SOD SUCC 40 MG/ML VL IV SCH ×2 (09:15→20:25)
[2021-10-04] MEDS: HYDROcodone-ACET 5/325MG TAB PO PRN ×2 (09:15→15:15)
[2021-10-04] MEDS: ENOXAPARIN SOD 40 MG/0.4 ML SYRINGE SC SCH (09:17)
[2021-10-04] MEDS ORDERED: REMDESIVIR PER PHARMACY 0 ML IV SCH (11:00)
[2021-10-04] MEDS ORDERED: HYDROmorphone HCL 2 MG/ML VL/or syr IV PRN (11:00)
[2021-10-04 11:52] LABS: Basophils # (auto) 0 10 ^3/uL (0-0.2); Eosinophils # (auto) 0 10 ^3/uL (0-0.8); Hematocrit 40.7 % (36.0-46.0); Hemoglobin 13.6 g/dL (12.2-16.2); Lymphocytes # (auto) 0.3 10 ^3/uL (0.4-5.4); Lymphocytes % (auto) 10.9 % (10.0-50.0); Mean Corpuscular Hemoglobin 28.9 pg (28.0-32.0); Mean Corpuscular Hgb Conc. 33.5 g/dL (32.0-36.0); Mean Corpuscular Volume 86.1 fL (80.0-100.0); Monocytes # (auto) 0.1 10 ^3/uL (0-1.3); Monocytes % (auto) 3.3 % (0.0-12.0); Neutrophils # (auto) 2.5 10 ^3/uL (1.6-8.6); Neutrophils % (auto) 84.8 % (37.0-80.0); Nucleated Red Blood Cells % 0.1 %; Red Blood Cells 4.73 10^6/uL (4.0-5.20); White Blood Cell 2.9 10^3/uL (4.4-10.8)
[2021-10-04] MEDS ORDERED: REMDESIVIR 200 MG in NS 210ml LOADING DOSE ADULT IV ONE ×2 (12:30→15:00)
[2021-10-04 13:00] VITALS: BP 142/65
[2021-10-04] MEDS ORDERED: POTASSIUM CHL 20 Meq TABLET PO ONE (14:15)
[2021-10-04] MEDS ORDERED: DOXYCYCLINE 100 MG TAB/CAP PO ONE (14:15)
[2021-10-04] MEDS: HYDROmorphone HCL 2 MG/ML VL/or syr IV PRN ×2 (15:48→20:27)
[2021-10-04 16:19] LABS: Albumin 3.7 g/dL (3.4-5.0)
[2021-10-04 16:25] LABS: BUN/Creatinine Ratio 20.8; Bilirubin, Total 0.6 mg/dL (0.2-1.0); Calcium 9.3 mg/dL (8.5-10.1); Total Protein 7.2 g/dL (6.4-8.2)
[2021-10-04 16:27] VITALS: BP 132/64
[2021-10-04] MEDS: DOXYCYCLINE 100 MG TAB/CAP PO SCH (21:21)
[2021-10-04 22:00] VITALS: BP 150/78
[2021-10-05] MEDS: HYDROmorphone HCL 2 MG/ML VL/or syr IV PRN ×3 (03:49→20:36)
[2021-10-05 05:00] VITALS: BP 135/75
[2021-10-05 06:51] LABS: Albumin 3.3 g/dL (3.4-5.0); Calcium 9.1 mg/dL (8.5-10.1); Magnesium 2.5 mg/dL (1.6-2.6); Potassium 4.3 mmol/L (3.5-5.1)
[2021-10-05 06:52] LABS: Basophils # (auto) 0 10 ^3/uL (0-0.2); Basophils % (auto) 0.6 % (0.0-2.0); Eosinophils # (auto) 0 10 ^3/uL (0-0.8); Hematocrit 36.5 % (36.0-46.0); Hemoglobin 12.6 g/dL (12.2-16.2); Lymphocytes # (auto) 0.4 10 ^3/uL (0.4-5.4); Lymphocytes % (auto) 5.2 % (10.0-50.0); Mean Corpuscular Hemoglobin 29.6 pg (28.0-32.0); Mean Corpuscular Hgb Conc. 34.5 g/dL (32.0-36.0); Mean Corpuscular Volume 85.9 fL (80.0-100.0); Monocytes # (auto) 0.3 10 ^3/uL (0-1.3); Monocytes % (auto) 4.3 % (0.0-12.0); Neutrophils # (auto) 7.2 10 ^3/uL (1.6-8.6); Neutrophils % (auto) 89.9 % (37.0-80.0); Nucleated Red Blood Cells % 0.2 %; Red Blood Cells 4.25 10^6/uL (4.0-5.20); Red Cell Distribution Width 15.8 % (11.8-14.3)
[2021-10-05 06:54] LABS: BUN/Creatinine Ratio 41.8; Bilirubin, Total 0.6 mg/dL (0.2-1.0); Total Protein 6.3 g/dL (6.4-8.2)
[2021-10-05 09:00] VITALS: BP 118/80
[2021-10-05] MEDS: HYDROcodone-ACET 5/325MG TAB PO PRN ×2 (09:07→18:52)
[2021-10-05] MEDS: methylPREDNISolone SOD SUCC 40 MG/ML VL IV SCH ×2 (09:10→20:35)
[2021-10-05] MEDS: ENOXAPARIN SOD 40 MG/0.4 ML SYRINGE SC SCH (11:04)
[2021-10-05] MEDS: DOXYCYCLINE 100 MG TAB/CAP PO SCH ×2 (11:04→21:07)
[2021-10-05 13:00] VITALS: BP 141/90
[2021-10-05] MEDS ORDERED: REMDESIVIR 100mg 100 MG in SODIUM CHL 0.9% 230 ML IV SCH (15:00)
[2021-10-05 17:00] VITALS: BP 144/77
[2021-10-06] MEDS: HYDROmorphone HCL 2 MG/ML VL/or syr IV PRN ×2 (01:43→08:53)
[2021-10-06 06:00] VITALS: BP 126/68
[2021-10-06 06:49] LABS: Albumin 3.2 g/dL (3.4-5.0); Calcium 8.7 mg/dL (8.5-10.1); Potassium 4.2 mmol/L (3.5-5.1)
[2021-10-06 06:54] LABS: BUN/Creatinine Ratio 32.9; Bilirubin, Total 0.6 mg/dL (0.2-1.0); Total Protein 6.4 g/dL (6.4-8.2)
[2021-10-06] MEDS: methylPREDNISolone SOD SUCC 40 MG/ML VL IV SCH (08:00)
[2021-10-06 09:00] VITALS: BP 104/68
[2021-10-06] MEDS: ENOXAPARIN SOD 40 MG/0.4 ML SYRINGE SC SCH (10:31)
[2021-10-06] MEDS: DOXYCYCLINE 100 MG TAB/CAP PO SCH (10:31)
[2021-10-06 13:00] VITALS: BP 116/72
[2021-10-06 14:08] VITALS: BP 106/62
[2021-10-06 14:30] VITALS: BP 130/79
== END 2021-10-06 17:00 | disposition left against medical advice (07) | DRG 177 ==
LOC: ER 16:17 → EDUNIT# 16:17 → EDBD 16:17 → TELE 21:16 → TELE-WESTW 10-04 08:52
PROVIDERS: ADMIT Nurse Practitioner; ATTEND Internal Medicine
PROC: XW033E5 Introduction of Remdesivir Anti-infective into Peripheral Vein, Percutaneous Approach, New Technology Group 5 (ICD-10-PCS; principal; 2021-10-05)
DX: U07.1 COVID-19 (principal); J12.82 Pneumonia due to coronavirus disease 2019; J96.21 Acute and chronic respiratory failure with hypoxia; J44.1 Chronic obstructive pulmonary disease with (acute) exacerbation; J44.0 Chronic obstructive pulmonary disease with (acute) lower respiratory infection; M06.9 Rheumatoid arthritis, unspecified; Z53.29 Procedure and treatment not carried out because of patient's decision for other reasons; M19.90 Unspecified osteoarthritis, unspecified site; G89.29 Other chronic pain; Z72.0 Tobacco use; Z71.6 Tobacco abuse counseling; Z90.710 Acquired absence of both cervix and uterus; Z82.49 Family history of ischemic heart disease and other diseases of the circulatory system; Z83.3 Family history of diabetes mellitus; Z90.49 Acquired absence of other specified parts of digestive tract
CPT/HCPCS: 36415; 71045; 71250; 80048; 80053; 81001; 82306; 82728; 83036; 83605; 83735; 83880; 84443; 84484; 85007; 85025; 85027; 85379; 87040; 93005; 93306; 94640; 96365; 96375; G0378; J1100

== ENCOUNTER 2021-12-05 11:58 | Inpatient (IN) | payer MEDICARE, MEDICAID ==
[~2021-12-05] VITALS: Ht 160 cm; Wt 41.1 kg
[2021-12-05 12:39] LABS: Hematocrit 37.4 % (36.0-46.0); Hemoglobin 12.9 g/dL (12.2-16.2); Mean Corpuscular Hemoglobin 29.4 pg (28.0-32.0); Mean Corpuscular Hgb Conc. 34.5 g/dL (32.0-36.0); Mean Corpuscular Volume 85.2 fL (80.0-100.0); Red Blood Cells 4.39 10^6/uL (4.0-5.20); Red Cell Distribution Width 15.4 % (11.8-14.3); White Blood Cell 6.9 10^3/uL (4.4-10.8)
[2021-12-05 12:57] LABS: Albumin 3.3 g/dL (3.4-5.0); Calcium 8.8 mg/dL (8.5-10.1); Potassium 3.4 mmol/L (3.5-5.1)
[2021-12-05 13:00] LABS: BUN/Creatinine Ratio 24.3; Bilirubin, Total 0.5 mg/dL (0.2-1.0); Total Protein 6.9 g/dL (6.4-8.2)
[2021-12-05 13:02] LABS: Basophils % (manual) 0 (0.0-2.0); Blast Cells 0; Metamyelocytes % 0; Myelocytes % 0; Promyelocytes % 0; Reactive Lymphocytes 0
[2021-12-05] MEDS ORDERED: ONDANSETRON HCL 4 MG/2 ML VIAL IV ONE ×2 (13:15→15:30)
[2021-12-05] MEDS ORDERED: MORPHINE SULFATE 4 MG/ML SYR/VIAL IV ONE ×2 (13:15→15:30)
[2021-12-05] MEDS ORDERED: KETOROLAC TROMETH 30 MG/ML 1ML VIAL IV ONE (13:30)
[2021-12-05] MEDS ORDERED: IOHEXOL 300 MG/ML 100ML BOTTLE IJ ONE (14:05)
[2021-12-05 14:29] LABS: Band Neutrophils % (manual) 1; Eosinophils % (manual) 1 (0-7); Lymphocytes % (manual) 12 (10.0-50.0); Monocytes % (manual) 3 (0-12)
[2021-12-05] MEDS ORDERED: LIDOCAINE VISCOUS 2% 15ML UD PO ONE (14:45)
[2021-12-05] MEDS ORDERED: ALUM & MAG HYDROX-SIMETH LIQ(MAALOX) 30 ML PO ONE (14:45)
[2021-12-05] MEDS ORDERED: LIDOCAINE VISCOUS 2% 15ML UD MT ONE (14:45)
[2021-12-05] MEDS ORDERED: IOHEXOL 350 MG/ML 100ML IJ ONE (16:00)
[2021-12-05] MEDS ORDERED: MORPHINE SULFATE INJ 2 MG/ml SYRG IV ONE (19:00)
[2021-12-05] MEDS ORDERED: DIA5T PO (19:11)
[2021-12-05] MEDS ORDERED: DIAZ5TAB PO (19:13)
[2021-12-05] MEDS ORDERED: IPRATROPIUM BROM 0.5 MG/2.5ML INH SOL NEB PRN (20:15)
[2021-12-05] MEDS ORDERED: ALBUTEROL SULF 2.5 MG/0.5ML(0.5%) NEB SOLN NEB PRN (20:15)
[2021-12-05 20:23] VITALS: BP 167/96
[2021-12-05] MEDS: ONDANSETRON HCL 4 MG/2 ML VIAL IV PRN (21:21)
[2021-12-05] MEDS: MORPHINE SULFATE INJ 2 MG/ml SYRG IV PRN (21:21)
[2021-12-05] MEDS: DICYCLOMINE HCL 10 MG CAP PO SCH (23:17)
[2021-12-05] MEDS: POTASSIUM CHL 20MEQ/100ML 100 ML IV SCH (23:18)
[2021-12-05] MEDS: SODIUM CHLORIDE 0.9% 1,000 ML IV SCH (23:19)
[2021-12-06] MEDS: HYDROcodone-ACET 7.5/325MG TAB PO PRN ×3 (00:50→14:13)
[2021-12-06] MEDS: MORPHINE SULFATE INJ 2 MG/ml SYRG IV PRN ×5 (01:23→20:18)
[2021-12-06 04:43] LABS: Urine Bacteria FEW /hpf (None Seen); Urine Blood Negative /uL (Negative); Urine WBC 33 /hpf (0 - 5)
[2021-12-06 04:46] LABS: Urine Specific Gravity > 1.050 (1.001-1.035)
[2021-12-06] MEDS ORDERED: POTASSIUM CHL 20MEQ/100ML 100 ML IV SCH (05:00)
[2021-12-06 05:15] LABS: Albumin 3.3 g/dL (3.4-5.0); Basophils # (auto) 0.1 10 ^3/uL (0-0.2); Basophils % (auto) 1.2 % (0.0-2.0); Calcium 8.9 mg/dL (8.5-10.1); Eosinophils # (auto) 0.2 10 ^3/uL (0-0.8); Eosinophils % (auto) 2.3 % (0.0-7.0); Hematocrit 35.6 % (36.0-46.0); Hemoglobin 12.3 g/dL (12.2-16.2); Lymphocytes # (auto) 1.6 10 ^3/uL (0.4-5.4); Mean Corpuscular Hemoglobin 29.5 pg (28.0-32.0); Mean Corpuscular Hgb Conc. 34.5 g/dL (32.0-36.0); Mean Corpuscular Volume 85.5 fL (80.0-100.0); Monocytes # (auto) 0.5 10 ^3/uL (0-1.3); Monocytes % (auto) 6.3 % (0.0-12.0); Neutrophils % (auto) 68.2 % (37.0-80.0); Nucleated Red Blood Cells % 0.1 %; Potassium 3.8 mmol/L (3.5-5.1); Red Blood Cells 4.16 10^6/uL (4.0-5.20); Red Cell Distribution Width 15.3 % (11.8-14.3); White Blood Cell 7.3 10^3/uL (4.4-10.8)
[2021-12-06 05:20] LABS: BUN/Creatinine Ratio 21.3; Bilirubin, Total 0.8 mg/dL (0.2-1.0); Total Protein 6.4 g/dL (6.4-8.2)
[2021-12-06] MEDS: DICYCLOMINE HCL 10 MG CAP PO SCH ×4 (06:09→21:41)
[2021-12-06] MEDS: SODIUM CHLORIDE 0.9% 1,000 ML IV SCH ×2 (08:02→16:30)
[2021-12-06] MEDS: ONDANSETRON HCL 4 MG/2 ML VIAL IV PRN ×3 (10:07→20:18)
[2021-12-06] MEDS: POTASSIUM CHL 20MEQ/100ML 100 ML IV SCH (10:12)
[2021-12-06] MEDS: ENOXAPARIN SOD 40 MG/0.4 ML SYRINGE SC SCH (10:13)
[2021-12-06] MEDS ORDERED: LISINOPRIL 20 MG TAB PO ONE (13:30)
[2021-12-06] MEDS ORDERED: HCTZ 25 MG TAB PO ONE (13:30)
[2021-12-06 16:40] VITALS: BP 149/94
[2021-12-06 16:41] VITALS: BP 149/94
[2021-12-06] MEDS ORDERED: ONDANSETRON HCL 4 MG/2 ML VIAL IV ONE (17:15)
[2021-12-06] MEDS: hydrALAZINE HCL 20 MG/ML VL IV PRN (20:18)
[2021-12-06 20:25] VITALS: BP 149/75
[2021-12-06 22:00] VITALS: BP 149/75
[2021-12-07] MEDS: MORPHINE SULFATE INJ 2 MG/ml SYRG IV PRN ×5 (00:23→20:11)
[2021-12-07] MEDS: HYDROcodone-ACET 7.5/325MG TAB PO PRN ×3 (02:13→21:56)
[2021-12-07] MEDS: SODIUM CHLORIDE 0.9% 1,000 ML IV SCH ×4 (02:13→20:28)
[2021-12-07] MEDS: hydrALAZINE HCL 20 MG/ML VL IV PRN ×2 (04:44→16:13)
[2021-12-07] MEDS: ONDANSETRON HCL 4 MG/2 ML VIAL IV PRN ×3 (04:47→20:11)
[2021-12-07 05:00] VITALS: BP 154/71
[2021-12-07] MEDS: DICYCLOMINE HCL 10 MG CAP PO SCH ×4 (05:09→21:43)
[2021-12-07 07:40] VITALS: BP 154/73
[2021-12-07] MEDS: LISINOPRIL 20 MG TAB PO SCH (08:45)
[2021-12-07] MEDS: HCTZ 25 MG TAB PO SCH (08:45)
[2021-12-07] MEDS: ENOXAPARIN SOD 40 MG/0.4 ML SYRINGE SC SCH (08:45)
[2021-12-07 09:00] VITALS: BP 154/73
[2021-12-07] MEDS ORDERED: NICOTINE 21MG/24 HR TOPICAL PATCH TD ONE (10:45)
[2021-12-07] MEDS: PANTOPRAZOLE 40 MG/10 ML VIAL INJ IV SCH ×2 (12:41→21:42)
[2021-12-07 13:00] VITALS: BP 165/83
[2021-12-07 16:54] VITALS: BP 150/89
[2021-12-07 22:00] VITALS: BP 150/71
[2021-12-08] MEDS: ONDANSETRON HCL 4 MG/2 ML VIAL IV PRN ×2 (00:15→05:32)
[2021-12-08] MEDS: MORPHINE SULFATE INJ 2 MG/ml SYRG IV PRN ×5 (00:16→22:31)
[2021-12-08] MEDS: HYDROcodone-ACET 7.5/325MG TAB PO PRN ×2 (03:19→09:42)
[2021-12-08 05:00] VITALS: BP 160/76
[2021-12-08] MEDS: DICYCLOMINE HCL 10 MG CAP PO SCH ×4 (05:32→22:21)
[2021-12-08 09:00] VITALS: BP 155/88
[2021-12-08] MEDS: PANTOPRAZOLE 40 MG/10 ML VIAL INJ IV SCH ×2 (09:40→22:20)
[2021-12-08] MEDS: LISINOPRIL 20 MG TAB PO SCH (09:41)
[2021-12-08] MEDS: HCTZ 25 MG TAB PO SCH (09:42)
[2021-12-08] MEDS: ENOXAPARIN SOD 40 MG/0.4 ML SYRINGE SC SCH (09:42)
[2021-12-08] MEDS: NICOTINE 21MG/24 HR TOPICAL PATCH TD SCH (09:44)
[2021-12-08] MEDS: SODIUM CHLORIDE 0.9% 1,000 ML IV SCH (11:31)
[2021-12-08 12:00] VITALS: BP 149/76
[2021-12-08 16:00] VITALS: BP 168/95
[2021-12-08 20:00] VITALS: BP 155/68
[2021-12-08 22:00] VITALS: BP 131/85
[2021-12-09] MEDS: MORPHINE SULFATE INJ 2 MG/ml SYRG IV PRN ×4 (04:13→21:18)
[2021-12-09 04:55] VITALS: BP 132/73
[2021-12-09 05:00] VITALS: BP 164/88
[2021-12-09] MEDS: DICYCLOMINE HCL 10 MG CAP PO SCH ×4 (07:38→21:18)
[2021-12-09] MEDS: PANTOPRAZOLE 40 MG/10 ML VIAL INJ IV SCH ×2 (08:21→21:18)
[2021-12-09] MEDS: LISINOPRIL 20 MG TAB PO SCH (08:22)
[2021-12-09] MEDS: HCTZ 25 MG TAB PO SCH (08:23)
[2021-12-09] MEDS: ENOXAPARIN SOD 40 MG/0.4 ML SYRINGE SC SCH (08:23)
[2021-12-09] MEDS: NICOTINE 21MG/24 HR TOPICAL PATCH TD SCH (08:25)
[2021-12-09 09:00] VITALS: BP 155/79
[2021-12-09] MEDS ORDERED: PANT40T PO (09:22)
[2021-12-09] MEDS ORDERED: NIC21P TOP (09:23)
[2021-12-09 14:31] VITALS: BP 140/75
[2021-12-09 17:16] VITALS: BP 146/89
[2021-12-09] MEDS: SODIUM CHLORIDE 0.9% 1,000 ML IV SCH (21:18)
[2021-12-09 22:00] VITALS: BP 138/88
[2021-12-10] MEDS: MORPHINE SULFATE INJ 2 MG/ml SYRG IV PRN ×2 (01:45→08:18)
[2021-12-10 05:00] VITALS: BP 172/88
[2021-12-10] MEDS: DICYCLOMINE HCL 10 MG CAP PO SCH (05:55)
[2021-12-10 06:56] VITALS: BP 142/79
[2021-12-10 08:00] VITALS: BP 124/86
[2021-12-10 09:07] VITALS: BP 124/86
[2021-12-10] MEDS: PANTOPRAZOLE 40 MG/10 ML VIAL INJ IV SCH (10:15)
[2021-12-10] MEDS: LISINOPRIL 20 MG TAB PO SCH (10:15)
[2021-12-10] MEDS: HCTZ 25 MG TAB PO SCH (10:15)
[2021-12-10] MEDS: NICOTINE 21MG/24 HR TOPICAL PATCH TD SCH (10:16)
[2021-12-10] MEDS: ENOXAPARIN SOD 40 MG/0.4 ML SYRINGE SC SCH (10:16)
[2021-12-10] MEDS: SODIUM CHLORIDE 0.9% 1,000 ML IV SCH (10:23)
== END 2021-12-10 12:42 | disposition home or self-care (01) | DRG 444 ==
LOC: ER 11:58 → EDBD 11:58 → OVERFLOW 20:18 → WEST WING 12-06 16:34
PROVIDERS: ADMIT Nurse Practitioner Family; ATTEND Family Medicine
DX: K83.8 Other specified diseases of biliary tract (principal); U07.1 COVID-19; K56.7 Ileus, unspecified; J98.11 Atelectasis; N39.0 Urinary tract infection, site not specified; I71.40 Abdominal aortic aneurysm, without rupture, unspecified; E86.0 Dehydration; M06.9 Rheumatoid arthritis, unspecified; E87.6 Hypokalemia; G89.4 Chronic pain syndrome; I10 Essential (primary) hypertension; I71.21 Aneurysm of the ascending aorta, without rupture; J44.9 Chronic obstructive pulmonary disease, unspecified; Z72.0 Tobacco use; Z79.899 Other long term (current) drug therapy; Z82.49 Family history of ischemic heart disease and other diseases of the circulatory system; Z90.49 Acquired absence of other specified parts of digestive tract; Z83.3 Family history of diabetes mellitus; Z90.710 Acquired absence of both cervix and uterus; Z88.8 Allergy status to other drugs, medicaments and biological substances; Z71.6 Tobacco abuse counseling
CPT/HCPCS: 36415; 71275; 74177; 76705; 78226; 80053; 81001; 85007; 85025; 85027; 87426; 87804; 93005; 96365; 96366; 96372; 96375; 96376; C9113; G0378; J1885; J2405; J3480

== ENCOUNTER 2022-02-03 13:38 | Inpatient (IN) | payer MEDICARE, MEDICAID ==
[~2022-02-03] VITALS: Ht 152.4 cm; Wt 50.0 kg
[~2022-02-03 13:38] MED LIST changes: +DIA5T PO; +DIAZ5TAB PO; +NIC21P TOP; +PANT40T PO
[2022-02-03 15:08] VITALS: BP 121/78
[2022-02-03 15:38] LABS: Basophils # (auto) 0.1 10 ^3/uL (0-0.2); Basophils % (auto) 1.1 % (0.0-2.0); Eosinophils # (auto) 0.1 10 ^3/uL (0-0.8); Eosinophils % (auto) 1.2 % (0.0-7.0); Hematocrit 41.3 % (36.0-46.0); Lymphocytes # (auto) 1.7 10 ^3/uL (0.4-5.4); Lymphocytes % (auto) 17.5 % (10.0-50.0); Mean Corpuscular Hemoglobin 28.4 pg (28.0-32.0); Mean Corpuscular Hgb Conc. 33.8 g/dL (32.0-36.0); Mean Corpuscular Volume 84.1 fL (80.0-100.0); Monocytes # (auto) 0.7 10 ^3/uL (0-1.3); Neutrophils # (auto) 7.3 10 ^3/uL (1.6-8.6); Neutrophils % (auto) 73.2 % (37.0-80.0); Nucleated Red Blood Cells % 0.1 %; Red Blood Cells 4.92 10^6/uL (4.0-5.20); Red Cell Distribution Width 15.4 % (11.8-14.3)
[2022-02-03 15:52] LABS: Albumin 3.5 g/dL (3.4-5.0); Calcium 9.3 mg/dL (8.5-10.1); Potassium 3.2 mmol/L (3.5-5.1)
[2022-02-03 16:02] LABS: BUN/Creatinine Ratio 40.3; Bilirubin, Total 0.8 mg/dL (0.2-1.0); Total Protein 6.6 g/dL (6.4-8.2)
[2022-02-03] MEDS ORDERED: POTASSIUM EFFERVESENT TAB 25 MEQ PO ONE (16:45)
[2022-02-03] MEDS ORDERED: FAMOTIDINE (10MG/ML) 2ML VL IV ONE (19:30)
[2022-02-03] MEDS ORDERED: ALUM & MAG HYDROX-SIMETH LIQ(MAALOX) 30 ML PO ONE (19:30)
[2022-02-03] MEDS ORDERED: HYDROcodone-ACET 10/325MG TAB PO ONE (19:30)
[2022-02-03] MEDS ORDERED: ONDANSETRON HCL 4 MG/2 ML VIAL IV ONE (19:30)
[2022-02-03] MEDS ORDERED: SODIUM CHLORIDE 0.9% 1,000 ML IV ONE (19:30)
[2022-02-03] MEDS ORDERED: OXYCODONE W/ ACETAMINOPHEN 5/325MG TABLET PO ONE (19:45)
[2022-02-03] MEDS ORDERED: MORPHINE SULFATE INJ 2 MG/ml SYRG IV PRN (20:45)
[2022-02-03] MEDS ORDERED: DOCUSATE SOD 100 MG CAP PO PRN (20:45)
[2022-02-03] MEDS ORDERED: ALUM & MAG HYDROX-SIMETH LIQ(MAALOX) 30 ML PO PRN (20:45)
[2022-02-03] MEDS ORDERED: ACETAMINOPHEN 325 MG TAB PO PRN (20:45)
[2022-02-03] MEDS ORDERED: ONDANSETRON HCL 4 MG/2 ML VIAL IV PRN (20:45)
[2022-02-03] MEDS: SODIUM CHLORIDE 0.9% 1,000 ML IV SCH ×2 (20:51→23:06)
[2022-02-03] MEDS: metroNIDAZOLE 500MG/100ML 100 ML IV SCH (23:36)
[2022-02-04] MEDS: HYDROcodone-ACET 5/325MG TAB PO PRN ×2 (01:32→07:02)
[2022-02-04 05:23] LABS: Basophils # (auto) 0.1 10 ^3/uL (0-0.2); Basophils % (auto) 1.9 % (0.0-2.0); Eosinophils # (auto) 0.2 10 ^3/uL (0-0.8); Eosinophils % (auto) 3.5 % (0.0-7.0); Hematocrit 36.7 % (36.0-46.0); Hemoglobin 12.6 g/dL (12.2-16.2); Lymphocytes # (auto) 1.6 10 ^3/uL (0.4-5.4); Lymphocytes % (auto) 25.5 % (10.0-50.0); Mean Corpuscular Hemoglobin 28.4 pg (28.0-32.0); Mean Corpuscular Hgb Conc. 34.3 g/dL (32.0-36.0); Mean Corpuscular Volume 82.8 fL (80.0-100.0); Monocytes # (auto) 0.6 10 ^3/uL (0-1.3); Monocytes % (auto) 9.3 % (0.0-12.0); Neutrophils # (auto) 3.9 10 ^3/uL (1.6-8.6); Neutrophils % (auto) 59.8 % (37.0-80.0); Nucleated Red Blood Cells % 0.2 %; Red Blood Cells 4.44 10^6/uL (4.0-5.20); Red Cell Distribution Width 15.6 % (11.8-14.3); White Blood Cell 6.5 10^3/uL (4.4-10.8)
[2022-02-04 05:51] LABS: BUN/Creatinine Ratio 28.4; Calcium 8.8 mg/dL (8.5-10.1); Potassium 3.4 mmol/L (3.5-5.1)
[2022-02-04] MEDS: metroNIDAZOLE 500MG/100ML 100 ML IV SCH (09:37)
[2022-02-04 11:15] LABS: Urine Bacteria FEW /hpf (None Seen); Urine Blood TRACE /uL (Negative); Urine Hyaline Cast FEW /lpf (0 - 2); Urine Mucus FEW (None Seen); Urine Specific Gravity 1.024 (1.001-1.035); Urine WBC 46 /hpf (0 - 5)
== END 2022-02-04 10:22 | disposition left against medical advice (07) | DRG 392 ==
LOC: EDBD 13:38 → ER 13:38 → OVERFLOW 20:41
PROVIDERS: ADMIT Hospitalist; ATTEND Internal Medicine Geriatric Medicine
DX: K29.00 Acute gastritis without bleeding (principal); Z20.822 Contact with and (suspected) exposure to COVID-19; Z53.29 Procedure and treatment not carried out because of patient's decision for other reasons; E11.9 Type 2 diabetes mellitus without complications; E86.0 Dehydration; E87.6 Hypokalemia; M19.90 Unspecified osteoarthritis, unspecified site; J44.9 Chronic obstructive pulmonary disease, unspecified; K52.9 Noninfective gastroenteritis and colitis, unspecified; Z82.49 Family history of ischemic heart disease and other diseases of the circulatory system; Z87.891 Personal history of nicotine dependence; Z88.8 Allergy status to other drugs, medicaments and biological substances; Z90.710 Acquired absence of both cervix and uterus
CPT/HCPCS: 36415; 71045; 80048; 80053; 81001; 84484; 85025; 87086; 87426; 87804; 93005; 96361; 96374; 96375; G0378; J2405; J3490

== ENCOUNTER 2022-03-17 12:40 | Emergency (ER) | payer MEDICARE, MEDICAID ==
[~2022-03-17] VITALS: Ht 160 cm; Wt 48.6 kg
[2022-03-17] MEDS ORDERED: HYDROmorphone HCL 2 MG/ML VL/or syr IV ONE (13:00)
[2022-03-17 13:19] LABS: Basophils # (auto) 0.1 10 ^3/uL (0-0.2); Basophils % (auto) 1.2 % (0.0-2.0); Eosinophils # (auto) 0.2 10 ^3/uL (0-0.8); Eosinophils % (auto) 1.6 % (0.0-7.0); Hemoglobin 11.4 g/dL (12.2-16.2); Lymphocytes # (auto) 1.4 10 ^3/uL (0.4-5.4); Lymphocytes % (auto) 11.4 % (10.0-50.0); Mean Corpuscular Hemoglobin 27.5 pg (28.0-32.0); Mean Corpuscular Hgb Conc. 32.6 g/dL (32.0-36.0); Mean Corpuscular Volume 84.4 fL (80.0-100.0); Monocytes # (auto) 0.6 10 ^3/uL (0-1.3); Monocytes % (auto) 4.8 % (0.0-12.0); Neutrophils # (auto) 10.1 10 ^3/uL (1.6-8.6); Red Blood Cells 4.15 10^6/uL (4.0-5.20); Red Cell Distribution Width 16.1 % (11.8-14.3); White Blood Cell 12.5 10^3/uL (4.4-10.8)
[2022-03-17 13:38] LABS: Albumin 2.9 g/dL (3.4-5.0); BUN/Creatinine Ratio 31.9; Magnesium 1.7 mg/dL (1.6-2.6); Potassium 3.2 mmol/L (3.5-5.1)
[2022-03-17 13:41] LABS: Bilirubin, Total 0.5 mg/dL (0.2-1.0); Total Protein 6.4 g/dL (6.4-8.2)
[2022-03-17] MEDS ORDERED: HYDROcodone-ACET 10/325MG TAB PO ONE (16:45)
[2022-03-17 17:18] VITALS: BP 116/85
[2022-03-17] MEDS ORDERED: ONDANSETRON HCL 4 MG/2 ML VIAL IV ONE (17:30)
== END 2022-03-17 17:32 | disposition left against medical advice (07) ==
LOC: EDBD 12:40 → ER 12:40
DX: R10.13 Epigastric pain (principal); J44.9 Chronic obstructive pulmonary disease, unspecified; Z90.710 Acquired absence of both cervix and uterus; Z87.891 Personal history of nicotine dependence; Z88.6 Allergy status to analgesic agent; Z88.1 Allergy status to other antibiotic agents; Z79.899 Other long term (current) drug therapy
CPT/HCPCS: 36415; 80053; 83735; 83880; 84484; 85025; 85610; 85730; 93005